=== PATIENT | female | born 1930 | race Caucasian/White ===

== ENCOUNTER 2018-02-22 20:47 | Inpatient (IN) | payer MEDICARE ==
[2018-02-22] MEDS ORDERED: NS 0.9% 500 ML* 500 ML IV ONE ×3 (21:24→23:13)
[2018-02-22 22:05] LABS: ABS Basophils 0.1 10^3/ul (0-0.2); ABS Eosinophils 0 10^3/ul (0-0.6); ABS Lymphocytes 1.7 10^3/ul (1.0-4.8); ABS Neutrophils 15.1 10^3/ul (1.5-7.7); ABS Nucleated RBC 0 10^3/ul; Eosinophil % 0.2 %; Hematocrit 41 % (35-47); Hemoglobin 13.5 g/dl (12.0-16.0); Lymphocyte % 9.6 %; Mean Corpuscular HGB Conc 33 g/dl (31-36); Mean Corpuscular Hemoglobin 30 pg (27-31); Mean Corpuscular Volume 93 fL (80-97); Mean Platelet Volume 8.5 fL (7.4-10.4); Nucleated Red Blood Cells % 0; Platelet Count 345 10^3/ul (150-450); Red Blood Count 4.44 10^6/ul (4.00-5.40); Red Cell Distribution Width 14 % (10.5-15)
[2018-02-22 22:10] LABS: INR 0.98 (0.77-1.02)
[2018-02-22 22:24] LABS: ALT 3 U/L (7-52); AST 15 U/L (13-39); Albumin/Globulin Ratio 1.2 (1-3); Alkaline Phosphatase 79 U/L (34-104); Anion Gap 9 mmol/L (2-11); BUN/Creatinine Ratio 36.2 (8-20); Blood Urea Nitrogen 38 mg/dL (6-24); C Reactive Protein 176.49 mg/L (<8.01); CO2 Carbon Dioxide 26 mmol/L (22-32); Calcium 9.9 mg/dL (8.6-10.3); Chloride 102 mmol/L (101-111); EGFR Non-African American 49.7 (>60); Globulin 3.3 g/dL (2-4); Glucose 153 mg/dL (70-100); Sodium 137 mmol/L (135-145); Total Protein 7.3 g/dL (6.4-8.9)
[2018-02-22] MEDS ORDERED: Iodixanol* (CONTRAST) 320 MG/ML 100 ML SDV IV ONE (22:27)
[2018-02-22 22:46] LABS: Urine Appearance Clear; Urine Bilirubin Negative (Negative); Urine Blood Negative (Negative); Urine Color Yellow; Urine Glucose Negative (Negative); Urine Ketones Negative (Negative); Urine Nitrite Negative (Negative); Urine Protein Negative (Negative); Urine Specific Gravity 1.014 (1.010-1.030); Urine Urobilinogen Negative (Negative)
--- NOTE | 2018-02-23 00:45 | ED ---
Abdominal Pain/Female - HPI Summary HPI Summary: Patient from [facility] with DNR and DNI complains of bilateral lower abdominal pain, blood in stool, rectal pain with bowel movement starting today. Denies fever, cough, sore throat, CP, SOB, N/V/D, change in urine. Medical history is HTN, hypothyroid, Parkinson's, HDL. Patient does not remember abdominal surgical history. Patient for the most part alert and oriented, but does not always answer history of present illness questions clearly. - History of Current Complaint Chief Complaint: EDGIBleed Stated Complaint: BLOOD IN STOOL Time Seen by Provider: 02/22/18 21:05 Hx Obtained From: Patient Onset/Duration: Gradual Onset, Lasting Hours Severity Initially: Moderate Severity Currently: Moderate Pain Intensity: 7 Pain Scale Used: 0-10 Numeric Location: Discrete At: RLQ, Discrete At: LLQ, Suprapubic Radiates: No Character: Sharp, Burning Aggravating Factor(s): Nothing Alleviating Factor(s): Nothing Associated Signs and Symptoms: Positive: Negative Allergies/Adverse Reactions: Allergies Allergy/AdvReac Type Severity Reaction Status Date / Time amantadine Allergy Unknown Verified 02/22/18 22:44 Reaction Details amoxicillin Allergy Unknown Verified 02/22/18 22:44 Reaction Details bee venom protein (honey bee) Allergy Anaphylatic Verified 02/22/18 20:59 Shock epinephrine [From EpiPen] Allergy Unknown Verified 02/22/18 22:44 Reaction Details hydrocodone Allergy Unknown Verified 02/22/18 20:59 Reaction Details meperidine [From Demerol] Allergy Unknown Verified 02/22/18 20:59 Reaction Details morphine Allergy Unknown Verified 02/22/18 20:59 Reaction Details procaine Allergy Unknown Verified 02/22/18 20:59 Reaction Details propoxyphene [From Darvon] Allergy Unknown Verified 02/22/18 20:59 Reaction Details PMH/Surg Hx/FS Hx/Imm Hx Endocrine/Hematology History: Reports: Hx Thyroid Disease - hypo Denies: Hx Diabetes Cardiovascular History: Reports: Hx Hypercholesterolemia, Hx Hypertension Respiratory History: Reports: Hx Chronic Bronchitis - was taking Azithromycin on admission Denies: Hx Asthma, Hx Chronic Obstructive Pulmonary Disease (COPD) GI History: Reports: Hx Gastroesophageal Reflux Disease, Hx Ulcer - gerd Musculoskeletal History: Reports: Hx Arthritis, Hx Osteoporosis Denies: Hx Rheumatoid Arthritis Sensory History: Reports: Hx Cataracts, Hx Contacts or Glasses, Hx Hearing Aid - not with patient, Hx Hearing Problem Opthamlomology History: Reports: Hx Cataracts, Hx Contacts or Glasses Neurological History: Reports: Other Neuro Impairments/Disorders - Parkinson's Psychiatric History: Reports: Hx Depression - Surgical History Surgery Procedure, Year, and Place: 1931 MASTOIDECTOMY RIGHT EAR. 1968 HYSTERECTOMY. 1971 FRACTURED RIGHT ANKLE. 1988 STAPEDECTOMY LEFT EAR. 1993 FRACTURED LEFT ANKLE. 1998 LAMINECTOMY L4 & L5. 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 2007 FRACTURE LEFT HUMEROUS. 2007 EYE LENS TRANSPLANT RIGHT Hx Anesthesia Reactions: No Infectious Disease History: No Infectious Disease History: Reports: Hx Tuberculosis - history Denies: Hx Clostridium Difficile, Hx Hepatitis, Hx Human Immunodeficiency Virus (HIV), Hx of Known/Suspected MRSA, Hx Shingles, Hx Known/Suspected VRE, Hx Known/Suspected VRSA, History Other Infectious Disease, Traveled Outside the [place] in Last 30 Days - Family History Known Family History: Positive: Cardiac Disease - Social History Alcohol Use: None Substance Use Type: Reports: None Smoking Status (MU): Never Smoked Tobacco Review of Systems Constitutional: Negative Eyes: Negative ENT: Negative Cardiovascular: Negative Respiratory: Negative Positive: Abdominal Pain Genitourinary: Negative Musculoskeletal: Negative Skin: Negative Neurological: Negative Psychological: Normal All Other Systems Reviewed And Are Negative: Yes Physical Exam - Summary Physical Exam Summary: Patient diffusely tender to palpation of the abdomen. Hemoccult positive. Minimal tone to her rectum. Rectum otherwise unremarkable. Physical exam otherwise unremarkable. Triage Information Reviewed: Yes Vital Signs On Initial Exam: Initial Vitals Temp Pulse Resp BP Pulse Ox 97.7 F 88 18 145/87 94 02/22/18 20:54 02/22/18 20:54 02/22/18 20:54 02/22/18 20:54 02/22/18 20:54 Vital Signs Reviewed: Yes Appearance: Positive: Well-Appearing Skin: Positive: Warm Head/Face: Positive: Normal Head/Face Inspection Eyes: Positive: Normal ENT: Positive: Normal ENT inspection Neck: Positive: Supple Respiratory/Lung Sounds: Positive: Clear to Auscultation Cardiovascular: Positive: Normal Abdomen Description: Positive: Other: Musculoskeletal: Positive: Normal Neurological: Positive: Normal Psychiatric: Positive: Normal AVPU Assessment: Alert - [place] Coma Scale Best Eye Response: 4 - Spontaneous Best Motor Response: 6 - Obeys Commands Best Verbal Response: 5 - Oriented Coma Scale Total: 15 Diagnostics - Vital Signs Vital Signs Temp Pulse Resp BP Pulse Ox 02/23/18 00:31 96 21 162/97 95 02/23/18 00:01 88 26 168/104 100 02/23/18 00:00 88 20 100 02/22/18 23:31 84 23 146/74 100 02/22/18 23:23 23 02/22/18 22:35 79 25 159/91 02/22/18 22:06 78 148/88 96 02/22/18 22:00 80 93 02/22/18 21:35 83 134/77 95 02/22/18 21:05 86 135/83 95 02/22/18 21:04 89 91 02/22/18 20:54 97.7 F 88 18 145/87 94 - Laboratory Lab Results: Lab Results 02/22/18 02/22/18 02/22/18 Range/Units 21:59 21:59 21:59 WBC 18.0 H (3.5-10.8) 10^3/ul RBC 4.44 (4.00-5.40) 10^6/ul Hgb 13.5 (12.0-16.0) g/dl Hct 41 (35-47) % MCV 93 (80-97) fL MCH 30 (27-31) pg MCHC 33 (31-36) g/dl RDW 14 (10.5-15) % Plt Count 345 (150-450) 10^3/ul MPV 8.5 (7.4-10.4) fL Neut % (Auto) 83.8 % Lymph % (Auto) 9.6 % [place] % (Auto) 5.7 % Eos % (Auto) 0.2 % Baso % (Auto) 0.7 % Absolute Neuts (auto) 15.1 H (1.5-7.7) 10^3/ul Absolute Lymphs (auto) 1.7 (1.0-4.8) 10^3/ul Absolute Monos (auto) 1.0 H (0-0.8) 10^3/ul Absolute Eos (auto) 0 (0-0.6) 10^3/ul Absolute Basos (auto) 0.1 (0-0.2) 10^3/ul Absolute Nucleated RBC 0 10^3/ul Nucleated RBC % 0 INR (Anticoag Therapy) 0.98 (0.77-1.02) Sodium 137 (135-145) mmol/L Potassium 4.0 (3.5-5.0) mmol/L Chloride 102 (101-111) mmol/L Carbon Dioxide 26 (22-32) mmol/L Anion Gap 9 (2-11) mmol/L BUN 38 H (6-24) mg/dL Creatinine 1.05 H (0.51-0.95) mg/dL Est GFR ( Amer) 60.1 (>60) Est GFR (Non-Af Amer) 49.7 (>60) BUN/Creatinine Ratio 36.2 H (8-20) Glucose 153 H (70-100) mg/dL Lactic Acid (0.5-2.0) mmol/L Calcium 9.9 (8.6-10.3) mg/dL Magnesium (1.9-2.7) mg/dL Total Bilirubin 1.00 (0.2-1.0) mg/dL AST 15 (13-39) U/L ALT 3 L (7-52) U/L Alkaline Phosphatase 79 (34-104) U/L Troponin I (<0.04) ng/mL C-Reactive Protein 176.49 H (<8.01) mg/L Total Protein 7.3 (6.4-8.9) g/dL Albumin 4.0 (3.2-5.2) g/dL Globulin 3.3 (2-4) g/dL Albumin/Globulin Ratio 1.2 (1-3) Lipase < 10 L (11.0-82.0) U/L Urine Color Urine Appearance Urine pH (5-9) Ur Specific [place] (1.010-1.030) Urine Protein (Negative) Urine Ketones (Negative) Urine Blood (Negative) Urine Nitrate (Negative) Urine Bilirubin (Negative) Urine Urobilinogen (Negative) Ur Leukocyte Esterase (Negative) Urine Glucose (Negative) 02/22/18 02/22/18 02/22/18 Range/Units 22:39 23:31 23:31 WBC (3.5-10.8) 10^3/ul RBC (4.00-5.40) 10^6/ul Hgb (12.0-16.0) g/dl Hct (35-47) % MCV (80-97) fL MCH (27-31) pg MCHC (31-36) g/dl RDW (10.5-15) % Plt Count (150-450) 10^3/ul MPV (7.4-10.4) fL Neut % (Auto) % Lymph % (Auto) % [place] % (Auto) % Eos % (Auto) % Baso % (Auto) % Absolute Neuts (auto) (1.5-7.7) 10^3/ul Absolute Lymphs (auto) (1.0-4.8) 10^3/ul Absolute Monos (auto) (0-0.8) 10^3/ul Absolute Eos (auto) (0-0.6) 10^3/ul Absolute Basos (auto) (0-0.2) 10^3/ul Absolute Nucleated RBC 10^3/ul Nucleated RBC % INR (Anticoag Therapy) (0.77-1.02) Sodium (135-145) mmol/L Potassium (3.5-5.0) mmol/L Chloride (101-111) mmol/L Carbon Dioxide (22-32) mmol/L Anion Gap (2-11) mmol/L BUN (6-24) mg/dL Creatinine (0.51-0.95) mg/dL Est GFR ( Amer) (>60) Est GFR (Non-Af Amer) (>60) BUN/Creatinine Ratio (8-20) Glucose (70-100) mg/dL Lactic Acid 1.6 (0.5-2.0) mmol/L Calcium (8.6-10.3) mg/dL Magnesium 2.0 (1.9-2.7) mg/dL Total Bilirubin (0.2-1.0) mg/dL AST (13-39) U/L ALT (7-52) U/L Alkaline Phosphatase (34-104) U/L Troponin I 0.00 (<0.04) ng/mL C-Reactive Protein (<8.01) mg/L Total Protein (6.4-8.9) g/dL Albumin (3.2-5.2) g/dL Globulin (2-4) g/dL Albumin/Globulin Ratio (1-3) Lipase (11.0-82.0) U/L Urine Color Yellow Urine Appearance Clear Urine pH 6.0 (5-9) Ur Specific [place] 1.014 (1.010-1.030) Urine Protein Negative (Negative) Urine Ketones Negative (Negative) Urine Blood Negative (Negative) Urine Nitrate Negative (Negative) Urine Bilirubin Negative (Negative) Urine Urobilinogen Negative (Negative) Ur Leukocyte Esterase Negative (Negative) Urine Glucose Negative (Negative) Result Diagrams: 02/22/18 21:59 02/22/18 21:59 Lab Statement: Any lab studies that have been ordered have been reviewed, and results considered in the medical decision making process. - CT ab/pel w CT Interpretation Completed By: Radiologist Summary of CT Findings: Colitis Abdominal Pain Fem Course/Dx - Course Course Of Treatment: Patient from [facility] with DNR and DNI complains of bilateral lower abdominal pain, blood in stool, rectal pain with bowel movement starting today. Denies fever, cough, sore throat, CP, SOB, N/V/D, change in urine. Medical history is HTN, hypothyroid, Parkinson's, HDL. Patient does not remember abdominal surgical history. Patient for the most part alert and oriented, but does not always answer history of present illness questions clearly. Physical exam:Patient diffusely tender to palpation of the abdomen. Hemoccult positive. Minimal tone to her rectum. Rectum otherwise unremarkable. Physical exam otherwise unremarkable. Vital signs within normal limits and stable. WBC 18. CRP 175. BUN 38. Creatinine 1.5.. BUN/ creatinine ratio 36. Labs otherwise unremarkable. EKG sinus rhythm with prolonged QT interval. Magnesium level normal. Chest x-ray unremarkable. CT abdomen and pelvis positive for colitis. Patient started on levaquin IV. Allergie to penicillin. Admitted to hospitalist. - Diagnoses Provider Diagnoses: Rectal bleeding, Colitis Discharge - Sign-Out/Discharge Documenting (check all that apply): Patient Departure - Discharge Plan Condition: Stable Disposition: ADMITTED TO [facility] Referrals: Gelacio Weinstein MD [Primary Care Provider] - - Billing Disposition and Condition Condition: STABLE Disposition: Admitted to [facility]
[2018-02-23] MEDS ORDERED: Levofloxacin 750 MG IVPREMIX(* 750 MG/150 ML BAG IVPB ONE (01:15)
[2018-02-23] MEDS ORDERED: Benzonatate CAP* 100 MG PO PRN (01:15)
[2018-02-23] MEDS ORDERED: Levofloxacin 750 MG IVPREMIX(* 750 MG/150 ML BAG ONE (02:04)
[2018-02-23] MEDS ORDERED: Ziprasidone IM INJ* 20 MG/ML VIAL IM ONE ×2 (03:22→20:00)
[2018-02-23] MEDS: Carbidopa/Levodop CR 50/200(*) TAB.CR PO SCH ×2 (04:25→23:06)
[2018-02-23 06:52] LABS: ABS Basophils 0 10^3/ul (0-0.2); ABS Eosinophils 0 10^3/ul (0-0.6); ABS Lymphocytes 1.7 10^3/ul (1.0-4.8); ABS Monocytes 0.9 10^3/ul (0-0.8); ABS Nucleated RBC 0 10^3/ul; Eosinophil % 0.3 %; Hematocrit 44 % (35-47); Hemoglobin 13.8 g/dl (12.0-16.0); Mean Corpuscular HGB Conc 32 g/dl (31-36); Mean Corpuscular Hemoglobin 30 pg (27-31); Mean Corpuscular Volume 95 fL (80-97); Mean Platelet Volume 8.5 fL (7.4-10.4); Nucleated Red Blood Cells % 0; Platelet Count 295 10^3/ul (150-450); Red Blood Count 4.61 10^6/ul (4.00-5.40); Red Cell Distribution Width 15 % (10.5-15); White Blood Count 15.7 10^3/ul (3.5-10.8)
[2018-02-23 07:34] LABS: Calcium 9.6 mg/dL (8.6-10.3); Potassium 4.6 mmol/L (3.5-5.0)
[2018-02-23 07:39] LABS: BUN/Creatinine Ratio 32.7 (8-20)
[2018-02-23 07:46] LABS: TSH (Thyroid Stimulating Horm) 3.32 mcIU/mL (0.34-5.60)
[2018-02-23 08:09] LABS: CRP High Sensitivity 178.78 mg/L (<2.00)
--- NOTE | 2018-02-23 08:32 | ADMNOTE ---
Subjective Date of Service: 02/23/18 Interval History: code status dnr ( molst form from snf is dni/dnr/do not admit to hospital unless pain is not controlled ) source staff pt is very confused with demenita hx this is admission h/p hpi this is a 87 yr old wf with mod dementia at least from snf ( [facility] ) was sent in to er when she was found to have blood in the stool. as per er, pt is confused but follows commands ---> had some abd pain when er midlevel pressed upon her abd---> ct of abd/pelvis showed sigmoid colitis. pt was very agitated on the medical floor qtc is 460 ---> one dose of im geodan was given ---> pt was seen afterwards im geodan and was sedated ---> no abd pain was able to be elicitied but she would sleep push away hands and finger stick probe. pt got flaygl and levaquin from er due to pcn. as per er signout, she has loose stool upon rectal exam phx possible dementia htn parkinson hypothyroid hd gerd oa depression hx of asymptomatic cholelithiasis with transient elevation of ast in 2016 pshx unable to get from pt social hx unable due to her dementia fhx unable Review of Systems - Measurements Intake and Output: Intake and Output Last 24 Hours 02/21/18 02/22/18 02/23/18 02/24/18 06:59 06:59 06:59 06:59 Intake Total 500 Balance 500 Weight 136 lb 14.4 oz Intake: IV Fluids 500 Other: Estimated Void Small # Bowel Movements 1 Estimated Stool Amount Large # Voids 1 - Review of Systems General Comments: unable due to her dementia Objective Active Medications: Ascorbic Acid (Vitamin C Tab*) 500 mg PO DAILY ANANDA Aspirin (Aspirin Ec Tab*) 81 mg PO DAILY ANANDA Carbidopa/Levodopa (Sinemet 25/100 Tab(*)) 2 tab PO 0500,0830,1100 ANANDA Carbidopa/Levodopa (Sinemet 25/100 Tab(*)) 2 tab PO 1730,1930 ANANDA Carbidopa/Levodopa (Sinemet Cr 50/200(*)) 1 tab.cr PO 2200,0200 ANANDA Last Admin: 02/23/18 04:25 Dose: Not Given Cetirizine HCl (Zyrtec*) 10 mg PO DAILY ANANDA Cyclosporine (Restasis 0.05% Ophth) 1 drop BOTH EYES DAILY ANANDA; Protocol Diltiazem HCl (Cardizem Cd Cap*) 180 mg PO DAILY ANANDA Docusate Sodium (Colace Cap*) 100 mg PO BID ANANDA Sodium Chloride (Ns 0.9% 1000 Ml*) 1,000 mls @ 125 mls/hr IV PER RATE ANANDA Levothyroxine Sodium (Synthroid Tab*) 25 mcg PO 0600 ANANDA Losartan Potassium (Cozaar Tab*) 50 mg PO DAILY ANANDA (Multiple Vitamins W / Calcium [Viactiv Multi-Vitamin] 1 Chw ) 1 chw PO DAILY ANANDA Omeprazole (Prilosec Cap*) 20 mg PO DAILY ANANDA Oxybutynin Chloride (Ditropan Tab*) 5 mg PO DAILY ANANDA Polyethylene Glycol/Electrolytes (Miralax*) 17 gm PO DAILY ANANDA Sertraline HCl (Zoloft*) 25 mg PO DAILY ANANDA Vital Signs - 8 hr 02/23/18 02/23/18 02/23/18 00:31 01:00 01:01 Temperature Pulse Rate 96 88 97 Respiratory 21 22 26 Rate Blood Pressure 162/97 154/91 (mmHg) O2 Sat by Pulse 95 97 87 Oximetry 02/23/18 02/23/18 02/23/18 01:31 01:50 02:00 Temperature Pulse Rate 82 Respiratory 21 23 21 Rate Blood Pressure 132/82 150/94 (mmHg) O2 Sat by Pulse 97 Oximetry 02/23/18 02/23/18 02/23/18 02:01 02:04 02:40 Temperature 97.7 F 98.2 F Pulse Rate 112 92 Respiratory 20 16 14 Rate Blood Pressure 126/78 144/67 150/94 (mmHg) O2 Sat by Pulse 99 95 Oximetry 02/23/18 05:57 Temperature 98.6 F Pulse Rate 72 Respiratory 20 Rate Blood Pressure (mmHg) O2 Sat by Pulse Oximetry Oxygen Devices in Use Now: None Appearance: not in acute disterss ----> sleeping after im geodan Ears/Nose/Mouth/Throat: - - oral mucosa dry Neck: NL Appearance and Movements; NL JVP, Trachea Midline, No Thyroid Enlargement, Masses Respiratory: Symmetrical Chest Expansion and Respiratory Effort, Clear to Auscultation, - - decreased b/s at base Cardiovascular: NL Sounds; No Murmurs; No JVD, RRR Abdominal: - - + bs soft distended abd overall is benign but she is sedated with im geodan 10 mg Extremities: - - trace pedal edema sedated Neurological: - - sedated with im geodan ( was very agitated ) Result Diagrams: 02/23/18 06:32 02/23/18 06:32 Additional Lab and Data: Lab Results 02/22/18 02/22/18 02/22/18 Range/Units 21:59 21:59 21:59 WBC 18.0 H (3.5-10.8) 10^3/ul RBC 4.44 (4.00-5.40) 10^6/ul Hgb 13.5 (12.0-16.0) g/dl Hct 41 (35-47) % MCV 93 (80-97) fL MCH 30 (27-31) pg MCHC 33 (31-36) g/dl RDW 14 (10.5-15) % Plt Count 345 (150-450) 10^3/ul MPV 8.5 (7.4-10.4) fL Neut % (Auto) 83.8 % Lymph % (Auto) 9.6 % [place] % (Auto) 5.7 % Eos % (Auto) 0.2 % Baso % (Auto) 0.7 % Absolute Neuts (auto) 15.1 H (1.5-7.7) 10^3/ul Absolute Lymphs (auto) 1.7 (1.0-4.8) 10^3/ul Absolute Monos (auto) 1.0 H (0-0.8) 10^3/ul Absolute Eos (auto) 0 (0-0.6) 10^3/ul Absolute Basos (auto) 0.1 (0-0.2) 10^3/ul Absolute Nucleated RBC 0 10^3/ul Nucleated RBC % 0 INR (Anticoag Therapy) 0.98 (0.77-1.02) Sodium 137 (135-145) mmol/L Potassium 4.0 (3.5-5.0) mmol/L Chloride 102 (101-111) mmol/L Carbon Dioxide 26 (22-32) mmol/L Anion Gap 9 (2-11) mmol/L BUN 38 H (6-24) mg/dL Creatinine 1.05 H (0.51-0.95) mg/dL Est GFR ( Amer) 60.1 (>60) Est GFR (Non-Af Amer) 49.7 (>60) BUN/Creatinine Ratio 36.2 H (8-20) Glucose 153 H (70-100) mg/dL Lactic Acid (0.5-2.0) mmol/L Calcium 9.9 (8.6-10.3) mg/dL Magnesium (1.9-2.7) mg/dL Total Bilirubin 1.00 (0.2-1.0) mg/dL AST 15 (13-39) U/L ALT 3 L (7-52) U/L Alkaline Phosphatase 79 (34-104) U/L Troponin I (<0.04) ng/mL C-Reactive Protein 176.49 H (<8.01) mg/L Total Protein 7.3 (6.4-8.9) g/dL Albumin 4.0 (3.2-5.2) g/dL Globulin 3.3 (2-4) g/dL Albumin/Globulin Ratio 1.2 (1-3) Lipase < 10 L (11.0-82.0) U/L Urine Color Urine Appearance Urine pH (5-9) Ur Specific [place] (1.010-1.030) Urine Protein (Negative) Urine Ketones (Negative) Urine Blood (Negative) Urine Nitrate (Negative) Urine Bilirubin (Negative) Urine Urobilinogen (Negative) Ur Leukocyte Esterase (Negative) Urine Glucose (Negative) 02/22/18 02/22/18 02/22/18 Range/Units 22:39 23:31 23:31 WBC (3.5-10.8) 10^3/ul RBC (4.00-5.40) 10^6/ul Hgb (12.0-16.0) g/dl Hct (35-47) % MCV (80-97) fL MCH (27-31) pg MCHC (31-36) g/dl RDW (10.5-15) % Plt Count (150-450) 10^3/ul MPV (7.4-10.4) fL Neut % (Auto) % Lymph % (Auto) % [place] % (Auto) % Eos % (Auto) % Baso % (Auto) % Absolute Neuts (auto) (1.5-7.7) 10^3/ul Absolute Lymphs (auto) (1.0-4.8) 10^3/ul Absolute Monos (auto) (0-0.8) 10^3/ul Absolute Eos (auto) (0-0.6) 10^3/ul Absolute Basos (auto) (0-0.2) 10^3/ul Absolute Nucleated RBC 10^3/ul Nucleated RBC % INR (Anticoag Therapy) (0.77-1.02) Sodium (135-145) mmol/L Potassium (3.5-5.0) mmol/L Chloride (101-111) mmol/L Carbon Dioxide (22-32) mmol/L Anion Gap (2-11) mmol/L BUN (6-24) mg/dL Creatinine (0.51-0.95) mg/dL Est GFR ( Amer) (>60) Est GFR (Non-Af Amer) (>60) BUN/Creatinine Ratio (8-20) Glucose (70-100) mg/dL Lactic Acid 1.6 (0.5-2.0) mmol/L Calcium (8.6-10.3) mg/dL Magnesium 2.0 (1.9-2.7) mg/dL Total Bilirubin (0.2-1.0) mg/dL AST (13-39) U/L ALT (7-52) U/L Alkaline Phosphatase (34-104) U/L Troponin I 0.00 (<0.04) ng/mL C-Reactive Protein (<8.01) mg/L Total Protein (6.4-8.9) g/dL Albumin (3.2-5.2) g/dL Globulin (2-4) g/dL Albumin/Globulin Ratio (1-3) Lipase (11.0-82.0) U/L Urine Color Yellow Urine Appearance Clear Urine pH 6.0 (5-9) Ur Specific [place] 1.014 (1.010-1.030) Urine Protein Negative (Negative) Urine Ketones Negative (Negative) Urine Blood Negative (Negative) Urine Nitrate Negative (Negative) Urine Bilirubin Negative (Negative) Urine Urobilinogen Negative (Negative) Ur Leukocyte Esterase Negative (Negative) Urine Glucose Negative (Negative) Microbiology and Other Data: Microbiology 02/22/18 22:00 Stool Occult Blood (MELITON) - Final Stool EKG Data: ns no acute st t changes Assess/Plan/Problems-Billing Assessment: this is a 87 yr old with mod dementia from snf presented to er after she was found to have blood in stool. as per er, she was found to have abd pain and was found to have loose stool upon rectal ---> ct of abd/pelvis showed + sigmoid colitis ---> intial wbc is 18 got levaquin and flagyl from er due to pcn - Patient Problems (1) Parkinson disease Current Visit: No Status: Chronic Code(s): G20 - PARKINSON'S DISEASE SNOMED Code(s): 97097930 Comment: continue Sinemet. pt is on significant amounts of sinemet, but daughter requested to cont at home dosage which is 10 tabs total of 25/100 and 2 tabs total of Sinemet CR (2) Sigmoid diverticulitis Current Visit: Yes Status: Acute Code(s): K57.32 - DVTRCLI OF LG INT W/O PERFORATION OR ABSCESS W/O BLEEDING SNOMED Code(s): 595179416 Comment: clear liquid as tolerated iv levaquin and flaygl moniter cbc and crp trend (3) HTN (hypertension) Current Visit: No Status: Chronic Code(s): I10 - ESSENTIAL (PRIMARY) HYPERTENSION SNOMED Code(s): 24252760 Comment: controlled, cont outpatient meds (4) Hypothyroidism Current Visit: No Status: Chronic Code(s): E03.9 - HYPOTHYROIDISM, UNSPECIFIED SNOMED Code(s): 78564356 Comment: cont Synthroid (5) Dementia Current Visit: Yes Status: Acute Code(s): F03.90 - UNSPECIFIED DEMENTIA WITHOUT BEHAVIORAL DISTURBANCE SNOMED Code(s): 40307327 Comment: very possible she became very agitated when arrived to floor got im geodan 10 mg im times one was sleeping when seen by this news writer (6) SIRS (systemic inflammatory response syndrome) Current Visit: Yes Status: Acute Code(s): R65.10 - SIRS OF NON-INFECTIOUS ORIGIN W/O ACUTE ORGAN DYSFUNCTION SNOMED Code(s): 009023710 Comment: moniter cbc trend continue abx (7) DNR (do not resuscitate) Current Visit: Yes Status: Acute (8) DVT prophylaxis Current Visit: Yes Status: Acute Code(s): BDX3804 - SNOMED Code(s): 261887941 Comment: as per protocol (9) Blood in stool Current Visit: Yes Status: Acute Code(s): K92.1 - MELENA SNOMED Code(s): 22277107 Comment: not sure it is related to colitis but her hg has been stable sonia (10) Dehydration Current Visit: Yes Status: Acute Code(s): E86.0 - DEHYDRATION SNOMED Code( s): 00802648 Comment: ivf moniter input and outpt and lytes
[2018-02-23] MEDS: NS 0.9% 1000 ML* 1,000 ML IV SCH ×2 (08:54→19:37)
[2018-02-23] MEDS ORDERED: MULTIPLE VITAMINS PO SCH (09:00)
[2018-02-23] MEDS ORDERED: CALCIUM PO SCH (09:00)
[2018-02-23] MEDS: Levothyroxine TAB* 25 MCG TAB PO SCH (10:33)
[2018-02-23] MEDS: Carbidopa/Levodop 25/100 MG TAB(*) PO SCH ×5 (10:33→19:35)
[2018-02-23] MEDS: metroNIDAZOLE IV 500 MG/100ML* 500 MG/100 ML BAG IVPB SCH ×2 (10:54→18:26)
[2018-02-23] MEDS: Cetirizine* 10 MG TAB PO SCH (12:10)
[2018-02-23] MEDS: Docusate CAP* 100 MG PO SCH ×2 (12:11→20:33)
[2018-02-23] MEDS: Omeprazole CAP (NF) 20 MG CAP.DR PO SCH (12:11)
[2018-02-23] MEDS: Sertraline* 25 MG TAB PO SCH (12:11)
[2018-02-23] MEDS: Diltiazem CD CAP* 180 MG PO SCH (12:11)
[2018-02-23] MEDS: Losartan TAB* 25 MG PO SCH (12:11)
[2018-02-23] MEDS: Oxybutynin TAB* 5 MG PO SCH (12:12)
[2018-02-23] MEDS: Ascorbic Acid TAB* 500 MG PO SCH (12:12)
[2018-02-23] MEDS: Aspirin EC TAB* 81 MG TAB.EC PO SCH (12:12)
[2018-02-23] MEDS: CYCLOSPORINE 0.05% BOTH EYES SCH (12:14)
[2018-02-23] MEDS ORDERED: Acetaminophen TAB* 325 MG PO PRN (14:02)
[2018-02-23] MEDS ORDERED: NS 0.9% 500 ML* 500 ML IV ONE (14:55)
[2018-02-23] MEDS: Heparin VIAL(*) 5000 UNITS/ML VIAL (FIVE THOUSAND) SUBCUT SCH ×2 (15:07→23:07)
[2018-02-23] MEDS: Polyethylene Glycol 3350* 17 GM PACKET PO SCH (20:09)
[2018-02-24] MEDS: metroNIDAZOLE IV 500 MG/100ML* 500 MG/100 ML BAG IVPB SCH ×3 (00:56→16:38)
[2018-02-24] MEDS: Carbidopa/Levodop CR 50/200(*) TAB.CR PO SCH ×2 (00:58→21:52)
[2018-02-24] MEDS: NS 0.9% 1000 ML* 1,000 ML IV SCH ×3 (03:50→21:41)
[2018-02-24] MEDS: Carbidopa/Levodop 25/100 MG TAB(*) PO SCH ×6 (04:07→20:01)
[2018-02-24] MEDS: Heparin VIAL(*) 5000 UNITS/ML VIAL (FIVE THOUSAND) SUBCUT SCH ×3 (05:51→21:52)
[2018-02-24] MEDS: Levothyroxine TAB* 25 MCG TAB PO SCH (05:55)
--- NOTE | 2018-02-24 08:02 | PN ---
Hospitalist Progress Note Date of Service: 02/24/18 got called reg pt sinement problem she has been very agitated and unable to tolerate any po meds or diet spoke with pharmacy reg convert her sinement to other forms of im or otc vs patch but given her overall mental status problem it may be for days prior to she is able to back on diet ---> her parkinson meds could be delayed for days which may not be her best interest and may make her overall mental status worse ---> pharmacy is greatly appreciated and placed for request for possible im replacment for sinement oral. this process may take one day to get this im med
[2018-02-24] MEDS: CYCLOSPORINE 0.05% BOTH EYES SCH (08:43)
[2018-02-24] MEDS: Aspirin EC TAB* 81 MG TAB.EC PO SCH (08:43)
[2018-02-24] MEDS: Docusate CAP* 100 MG PO SCH ×2 (08:43→21:38)
[2018-02-24] MEDS: Diltiazem CD CAP* 180 MG PO SCH (08:43)
[2018-02-24] MEDS: Losartan TAB* 25 MG PO SCH (08:43)
[2018-02-24] MEDS: Ascorbic Acid TAB* 500 MG PO SCH (08:43)
[2018-02-24] MEDS: Cetirizine* 10 MG TAB PO SCH (08:43)
[2018-02-24] MEDS: Oxybutynin TAB* 5 MG PO SCH (08:44)
[2018-02-24] MEDS: Polyethylene Glycol 3350* 17 GM PACKET PO SCH (08:44)
[2018-02-24] MEDS: Omeprazole CAP (NF) 20 MG CAP.DR PO SCH (08:44)
[2018-02-24] MEDS: Sertraline* 25 MG TAB PO SCH (08:44)
[2018-02-24] MEDS: Vitamin THERAPEUTIC TAB PO SCH (08:44)
--- NOTE | 2018-02-24 09:56 | PN ---
Subjective Date of Service: 02/24/18 Interval History: Pt with Parkinson's dementia. Pt initially refused examination, but was agreeable when daughter was present. Nurses report she was combative overnight and continues to refuse PO Sinemet. Objective Active Medications: Acetaminophen (Tylenol Tab*) 650 mg PO Q6H PRN Ascorbic Acid (Vitamin C Tab*) 500 mg PO DAILY ANANDA Aspirin (Aspirin Ec Tab*) 81 mg PO DAILY ANANDA Carbidopa/Levodopa (Sinemet 25/100 Tab(*)) 2 tab PO 0500,0830,1100 ANANDA Carbidopa/Levodopa (Sinemet 25/100 Tab(*)) 2 tab PO 1730,1930 ANANDA Carbidopa/Levodopa (Sinemet Cr 50/200(*)) 1 tab.cr PO 2200,0200 ANANDA Cetirizine HCl (Zyrtec*) 10 mg PO DAILY ANANDA Cyclosporine (Restasis 0.05% Ophth) 1 drop BOTH EYES DAILY ANANDA Diltiazem HCl (Cardizem Cd Cap*) 180 mg PO DAILY ANANDA Docusate Sodium (Colace Cap*) 100 mg PO BID ANANDA Heparin Sodium (Porcine) (Heparin Vial(*)) 5,000 units SUBCUT Q8HR ANANDA Sodium Chloride (Ns 0.9% 1000 Ml*) 1,000 mls @ 125 mls/hr IV PER RATE ANANDA Levofloxacin/Dextrose (Levaquin 750 Mg Ivpremix(*)) 750 mg in 150 mls @ 100 mls /hr IVPB Q48H ANANDA Metronidazole/Sodium Chloride (Flagyl 500 Mg Ivpb*) 500 mg in 100 mls @ 100 mls /hr IVPB Q8H ANANDA Levothyroxine Sodium (Synthroid Tab*) 25 mcg PO 0600 ANANDA Losartan Potassium (Cozaar Tab*) 50 mg PO DAILY ANANDA Multivitamins (Theragran Tab*) 1 tab PO DAILY ANANDA Omeprazole (Prilosec Cap*) 20 mg PO DAILY ANANDA Oxybutynin Chloride (Ditropan Tab*) 5 mg PO DAILY ANANDA Polyethylene Glycol/Electrolytes (Miralax*) 17 gm PO DAILY ANANDA Sertraline HCl (Zoloft*) 25 mg PO DAILY ANANDA Vital Signs: Temp Pulse Resp BP Pulse Ox 97.5 F 71 18 125/60 96 02/23/18 23:27 02/23/18 23:27 02/23/18 23:27 02/23/18 23:27 02/23/18 15:20 Oxygen Devices in Use Now: None Appearance: Pt is laying in bed with HOB elevated 45-degrees. Pt in no acute distress. Eyes: No Scleral Icterus Ears/Nose/Mouth/Throat: NL Teeth, Lips, Gums Neck: NL Appearance and Movements; NL JVP, Trachea Midline Respiratory: Symmetrical Chest Expansion and Respiratory Effort, Clear to Auscultation Cardiovascular: NL Sounds; No Murmurs; No JVD, No Edema Abdominal: NL Sounds; No Tenderness; No Distention Extremities: No Clubbing, Cyanosis Result Diagrams: 02/24/18 11:16 02/24/18 11:16 Additional Lab and Data: Lab Results 02/22/18 02/22/18 02/22/18 Range/Units 21:59 21:59 21:59 WBC 18.0 H (3.5-10.8) 10^3/ul RBC 4.44 (4.00-5.40) 10^6/ul Hgb 13.5 (12.0-16.0) g/dl Hct 41 (35-47) % MCV 93 (80-97) fL MCH 30 (27-31) pg MCHC 33 (31-36) g/dl RDW 14 (10.5-15) % Plt Count 345 (150-450) 10^3/ul MPV 8.5 (7.4-10.4) fL Neut % (Auto) 83.8 % Lymph % (Auto) 9.6 % [place] % (Auto) 5.7 % Eos % (Auto) 0.2 % Baso % (Auto) 0.7 % Absolute Neuts (auto) 15.1 H (1.5-7.7) 10^3/ul Absolute Lymphs (auto) 1.7 (1.0-4.8) 10^3/ul Absolute Monos (auto) 1.0 H (0-0.8) 10^3/ul Absolute Eos (auto) 0 (0-0.6) 10^3/ul Absolute Basos (auto) 0.1 (0-0.2) 10^3/ul Absolute Nucleated RBC 0 10^3/ul Nucleated RBC % 0 INR (Anticoag Therapy) 0.98 (0.77-1.02) Sodium 137 (135-145) mmol/L Potassium 4.0 (3.5-5.0) mmol/L Chloride 102 (101-111) mmol/L Carbon Dioxide 26 (22-32) mmol/L Anion Gap 9 (2-11) mmol/L BUN 38 H (6-24) mg/dL Creatinine 1.05 H (0.51-0.95) mg/dL Est GFR ( Amer) 60.1 (>60) Est GFR (Non-Af Amer) 49.7 (>60) BUN/Creatinine Ratio 36.2 H (8-20) Glucose 153 H (70-100) mg/dL Lactic Acid (0.5-2.0) mmol/L Calcium 9.9 (8.6-10.3) mg/dL Magnesium (1.9-2.7) mg/dL Total Bilirubin 1.00 (0.2-1.0) mg/dL AST 15 (13-39) U/L ALT 3 L (7-52) U/L Alkaline Phosphatase 79 (34-104) U/L Troponin I (<0.04) ng/mL C-Reactive Protein 176.49 H (<8.01) mg/L Total Protein 7.3 (6.4-8.9) g/dL Albumin 4.0 (3.2-5.2) g/dL Globulin 3.3 (2-4) g/dL Albumin/Globulin Ratio 1.2 (1-3) Lipase < 10 L (11.0-82.0) U/L Urine Color Urine Appearance Urine pH (5-9) Ur Specific [place] (1.010-1.030) Urine Protein (Negative) Urine Ketones (Negative) Urine Blood (Negative) Urine Nitrate (Negative) Urine Bilirubin (Negative) Urine Urobilinogen (Negative) Ur Leukocyte Esterase (Negative) Urine Glucose (Negative) 02/22/18 02/22/18 02/22/18 Range/Units 22:39 23:31 23:31 WBC (3.5-10.8) 10^3/ul RBC (4.00-5.40) 10^6/ul Hgb (12.0-16.0) g/dl Hct (35-47) % MCV (80-97) fL MCH (27-31) pg MCHC (31-36) g/dl RDW (10.5-15) % Plt Count (150-450) 10^3/ul MPV (7.4-10.4) fL Neut % (Auto) % Lymph % (Auto) % [place] % (Auto) % Eos % (Auto) % Baso % (Auto) % Absolute Neuts (auto) (1.5-7.7) 10^3/ul Absolute Lymphs (auto) (1.0-4.8) 10^3/ul Absolute Monos (auto) (0-0.8) 10^3/ul Absolute Eos (auto) (0-0.6) 10^3/ul Absolute Basos (auto) (0-0.2) 10^3/ul Absolute Nucleated RBC 10^3/ul Nucleated RBC % INR (Anticoag Therapy) (0.77-1.02) Sodium (135-145) mmol/L Potassium (3.5-5.0) mmol/L Chloride (101-111) mmol/L Carbon Dioxide (22-32) mmol/L Anion Gap (2-11) mmol/L BUN (6-24) mg/dL Creatinine (0.51-0.95) mg/dL Est GFR ( Amer) (>60) Est GFR (Non-Af Amer) (>60) BUN/Creatinine Ratio (8-20) Glucose (70-100) mg/dL Lactic Acid 1.6 (0.5-2.0) mmol/L Calcium (8.6-10.3) mg/dL Magnesium 2.0 (1.9-2.7) mg/dL Total Bilirubin (0.2-1.0) mg/dL AST (13-39) U/L ALT (7-52) U/L Alkaline Phosphatase (34-104) U/L Troponin I 0.00 (<0.04) ng/mL C-Reactive Protein (<8.01) mg/L Total Protein (6.4-8.9) g/dL Albumin (3.2-5.2) g/dL Globulin (2-4) g/dL Albumin/Globulin Ratio (1-3) Lipase (11.0-82.0) U/L Urine Color Yellow Urine Appearance Clear Urine pH 6.0 (5-9) Ur Specific [place] 1.014 (1.010-1.030) Urine Protein Negative (Negative) Urine Ketones Negative (Negative) Urine Blood Negative (Negative) Urine Nitrate Negative (Negative) Urine Bilirubin Negative (Negative) Urine Urobilinogen Negative (Negative) Ur Leukocyte Esterase Negative (Negative) Urine Glucose Negative (Negative) Microbiology and Other Data: Microbiology 02/22/18 22:00 Stool Occult Blood (MELITON) - Final Stool EKG Data: ns no acute st t changes Assess/Plan/Problems-Billing Assessment: this is a 87 yr old with mod dementia from snf presented to er after she was found to have blood in stool. as per er, she was found to have abd pain and was found to have loose stool upon rectal ---> ct of abd/pelvis showed + sigmoid colitis ---> intial wbc is 18 got levaquin and flagyl from er due to pcn - Patient Problems (1) Sigmoid diverticulitis Comment: -Pt without fevers -Continue clear liguids as tolerated -Continue Lavaquin, Flagyl -Continue CBC, CRP trend (2) Blood in stool Comment: -Hgb dipped overnight, but patient is asymptomatic. May be dilutional or due to colitis -Continue to trend (3) Parkinson disease Comment: -Pt refusiing Sinemet. Will try Sinemet later with daughter present. -Neupro 4mg transdermal patch ordered to start tomorrow a.m.; discontinue Sinemet at that time (4) Hypokalemia Comment: -Potassium Chloride 40 mEq ordered now -Repeat BMP tomorrow (5) Dehydration Comment: -Continue IVF -Monitor I/O, electrolytes (6) Dementia Comment: -Pt remains aggitated and uncooperative, although she is much less so with daughter present; she has not been combative recently -Continue to monitor (7) HTN (hypertension) Comment: -BP stable last 24h -Continue losartan, cardizem (8) Hypothyroidism Comment: -Continue Synthroid (9) DVT prophylaxis Comment: -Continue Heparin (10) DNR (do not resuscitate) Status and Disposition: Inpatient for IV antibiotics and continued treatment. Return to [place] when medically stable.
[2018-02-24 11:53] LABS: ABS Basophils 0 10^3/ul (0-0.2); ABS Eosinophils 0.3 10^3/ul (0-0.6); ABS Monocytes 0.5 10^3/ul (0-0.8); ABS Neutrophils 8.8 10^3/ul (1.5-7.7); ABS Nucleated RBC 0 10^3/ul; Eosinophil % 2.3 %; Hematocrit 34 % (35-47); Hemoglobin 11.1 g/dl (12.0-16.0); Lymphocyte % 17.3 %; Mean Corpuscular HGB Conc 32 g/dl (31-36); Mean Corpuscular Hemoglobin 30 pg (27-31); Mean Corpuscular Volume 93 fL (80-97); Mean Platelet Volume 8.6 fL (7.4-10.4); Nucleated Red Blood Cells % 0; Platelet Count 283 10^3/ul (150-450); Red Cell Distribution Width 15 % (10.5-15); White Blood Count 11.6 10^3/ul (3.5-10.8)
[2018-02-24 12:07] LABS: BUN/Creatinine Ratio 22.9 (8-20); EGFR Non-African American 65.2 (>60); Potassium 3.1 mmol/L (3.5-5.0)
[2018-02-24] MEDS ORDERED: Potassium Chlor TAB* 20 MEQ TAB.ER PO ONE (12:27)
[2018-02-24] MEDS ORDERED: Analgesic BALM* 114 GM TOPICAL PRN (13:15)
[2018-02-25] MEDS: metroNIDAZOLE IV 500 MG/100ML* 500 MG/100 ML BAG IVPB SCH ×3 (00:36→17:36)
[2018-02-25] MEDS: Carbidopa/Levodop CR 50/200(*) TAB.CR PO SCH ×2 (01:33→21:52)
[2018-02-25] MEDS: Cefepime* 2 GM in Dextrose 50mL Q12H (Duplex) IV SCH ×2 (01:47→14:10)
[2018-02-25] MEDS ORDERED: Levofloxacin 750 MG IVPREMIX(* 750 MG/150 ML BAG IVPB SCH (02:00)
[2018-02-25] MEDS: NS 0.9% 1000 ML* 1,000 ML IV SCH ×3 (05:49→23:05)
[2018-02-25 06:02] LABS: ABS Basophils 0.1 10^3/ul (0-0.2); ABS Eosinophils 0.3 10^3/ul (0-0.6); ABS Lymphocytes 1.8 10^3/ul (1.0-4.8); ABS Monocytes 0.5 10^3/ul (0-0.8); ABS Neutrophils 6.8 10^3/ul (1.5-7.7); ABS Nucleated RBC 0 10^3/ul; Eosinophil % 2.8 %; Hematocrit 33 % (35-47); Hemoglobin 10.9 g/dl (12.0-16.0); Lymphocyte % 19.6 %; Mean Corpuscular HGB Conc 33 g/dl (31-36); Mean Corpuscular Hemoglobin 31 pg (27-31); Mean Corpuscular Volume 93 fL (80-97); Mean Platelet Volume 8.8 fL (7.4-10.4); Nucleated Red Blood Cells % 0; Platelet Count 280 10^3/ul (150-450); Red Blood Count 3.53 10^6/ul (4.00-5.40); Red Cell Distribution Width 14 % (10.5-15); White Blood Count 9.4 10^3/ul (3.5-10.8)
[2018-02-25] MEDS: Levothyroxine TAB* 25 MCG TAB PO SCH (06:02)
[2018-02-25] MEDS: Carbidopa/Levodop 25/100 MG TAB(*) PO SCH ×5 (06:02→19:52)
[2018-02-25] MEDS: Heparin VIAL(*) 5000 UNITS/ML VIAL (FIVE THOUSAND) SUBCUT SCH ×3 (06:06→21:54)
[2018-02-25 06:24] LABS: BUN/Creatinine Ratio 17.5 (8-20); EGFR Non-African American 89.6 (>60); Potassium 3.2 mmol/L (3.5-5.0)
[2018-02-25] MEDS ORDERED: Potassium Chlor TAB* 20 MEQ TAB.ER PO ONE (07:35)
[2018-02-25] MEDS ORDERED: Magnesium Sulfate 1 GM IV* 1 GM/100 ML BAG IV ONE (07:36)
[2018-02-25] MEDS ORDERED: KCL 10 MEQ/50 ML IVPREMIX* 10 MEQ/50 ML BAG IV ONE (07:36)
[2018-02-25 07:57] LABS: Magnesium 1.5 mg/dL (1.9-2.7)
[2018-02-25] MEDS: Cetirizine* 10 MG TAB PO SCH (08:29)
[2018-02-25] MEDS: Sertraline* 25 MG TAB PO SCH (08:29)
[2018-02-25] MEDS: Aspirin EC TAB* 81 MG TAB.EC PO SCH (08:29)
[2018-02-25] MEDS: Diltiazem CD CAP* 180 MG PO SCH (08:29)
[2018-02-25] MEDS: Losartan TAB* 25 MG PO SCH (08:29)
[2018-02-25] MEDS: Oxybutynin TAB* 5 MG PO SCH (08:29)
[2018-02-25] MEDS: Vitamin THERAPEUTIC TAB PO SCH (08:29)
[2018-02-25] MEDS: Ascorbic Acid TAB* 500 MG PO SCH (08:29)
[2018-02-25] MEDS: Omeprazole CAP (NF) 20 MG CAP.DR PO SCH (08:30)
[2018-02-25] MEDS: CYCLOSPORINE 0.05% BOTH EYES SCH (08:40)
[2018-02-25] MEDS: Docusate CAP* 100 MG PO SCH ×2 (08:40→19:42)
[2018-02-25] MEDS: Polyethylene Glycol 3350* 17 GM PACKET PO SCH (08:40)
[2018-02-25] MEDS ORDERED: ROTIGOTINE 2 MG TOPICAL SCH ×2 (09:00→12:00)
--- NOTE | 2018-02-25 12:43 | PN ---
Subjective Date of Service: 02/25/18 Interval History: Today pt is more alert and talkative. She knows her name and is asking about her medications. Daughter was at the bedside visiting for most of the morning and was updated. Per nursing, pt continues to have liquid stools; GI consult ordered. PT evaluation ordered, as daughter states that patient was able to transfer prior to admission, and we would like to assess her ability to move now. Objective Active Medications: Acetaminophen (Tylenol Tab*) 650 mg PO Q6H PRN Ascorbic Acid (Vitamin C Tab*) 500 mg PO DAILY ANANDA Aspirin (Aspirin Ec Tab*) 81 mg PO DAILY ANANDA Carbidopa/Levodopa (Sinemet 25/100 Tab(*)) 2 tab PO 0500,0830,1100 ANANDA Carbidopa/Levodopa (Sinemet 25/100 Tab(*)) 2 tab PO 1730,1930 ANANDA Carbidopa/Levodopa (Sinemet Cr 50/200(*)) 1 tab.cr PO 2200,0200 ANANDA Cetirizine HCl (Zyrtec*) 10 mg PO DAILY ANANDA Cyclosporine (Restasis 0.05% Ophth) 1 drop BOTH EYES DAILY ANANDA Diltiazem HCl (Cardizem Cd Cap*) 180 mg PO DAILY ANANDA Docusate Sodium (Colace Cap*) 100 mg PO BID ANANDA Heparin Sodium (Porcine) (Heparin Vial(*)) 5,000 units SUBCUT Q8HR ANANDA Sodium Chloride (Ns 0.9% 1000 Ml*) 1,000 mls @ 125 mls/hr IV PER RATE ANANDA Metronidazole/Sodium Chloride (Flagyl 500 Mg Ivpb*) 500 mg in 100 mls @ 100 mls /hr IVPB Q8H ANANDA Cefepime HCl (Maxipime 2 Gm In Dextrose Duplex (*)) 2 gm in 50 mls @ 100 mls/ hr IV Q12H ANANDA Levothyroxine Sodium (Synthroid Tab*) 25 mcg PO 0600 ANANDA Losartan Potassium (Cozaar Tab*) 50 mg PO DAILY ANANDA Multi-Ingredient Liniment/Rub (Rashad Kirk*) 1 applic TOPICAL BID PRN Multivitamins (Theragran Tab*) 1 tab PO DAILY ANANDA Omeprazole (Prilosec Cap*) 20 mg PO DAILY ANANDA Oxybutynin Chloride (Ditropan Tab*) 5 mg PO DAILY ANANDA Polyethylene Glycol/Electrolytes (Miralax*) 17 gm PO DAILY ANANDA Sertraline HCl (Zoloft*) 25 mg PO DAILY ANANDA Vital Signs: Temp Pulse Resp BP Pulse Ox 97.6 F 68 18 118/60 93 02/25/18 07:23 02/25/18 12:31 02/25/18 07:23 02/25/18 12:31 02/25/18 07:23 Oxygen Devices in Use Now: None Appearance: Pt is awake and alert upon entering; she is resting comfortably. Eyes: No Scleral Icterus Ears/Nose/Mouth/Throat: NL Teeth, Lips, Gums, Mucous Membranes Moist Neck: NL Appearance and Movements; NL JVP, Trachea Midline Respiratory: Symmetrical Chest Expansion and Respiratory Effort, Clear to Auscultation, - - without wheeze, rales, rhonchi Cardiovascular: NL Sounds; No Murmurs; No JVD, RRR, No Edema Abdominal: - - Bowel sounds in all quadrants; diffusely tender to deep palpation Extremities: No Edema, No Clubbing, Cyanosis Skin: - - Erythema at site of telemetry stickers Neurological: - - Resting tremor b/l hands Result Diagrams: 02/25/18 05:22 02/25/18 05:22 Additional Lab and Data: Lab Results 02/22/18 02/22/18 02/22/18 Range/Units 21:59 21:59 21:59 WBC 18.0 H (3.5-10.8) 10^3/ul RBC 4.44 (4.00-5.40) 10^6/ul Hgb 13.5 (12.0-16.0) g/dl Hct 41 (35-47) % MCV 93 (80-97) fL MCH 30 (27-31) pg MCHC 33 (31-36) g/dl RDW 14 (10.5-15) % Plt Count 345 (150-450) 10^3/ul MPV 8.5 (7.4-10.4) fL Neut % (Auto) 83.8 % Lymph % (Auto) 9.6 % [place] % (Auto) 5.7 % Eos % (Auto) 0.2 % Baso % (Auto) 0.7 % Absolute Neuts (auto) 15.1 H (1.5-7.7) 10^3/ul Absolute Lymphs (auto) 1.7 (1.0-4.8) 10^3/ul Absolute Monos (auto) 1.0 H (0-0.8) 10^3/ul Absolute Eos (auto) 0 (0-0.6) 10^3/ul Absolute Basos (auto) 0.1 (0-0.2) 10^3/ul Absolute Nucleated RBC 0 10^3/ul Nucleated RBC % 0 INR (Anticoag Therapy) 0.98 (0.77-1.02) Sodium 137 (135-145) mmol/L Potassium 4.0 (3.5-5.0) mmol/L Chloride 102 (101-111) mmol/L Carbon Dioxide 26 (22-32) mmol/L Anion Gap 9 (2-11) mmol/L BUN 38 H (6-24) mg/dL Creatinine 1.05 H (0.51-0.95) mg/dL Est GFR ( Amer) 60.1 (>60) Est GFR (Non-Af Amer) 49.7 (>60) BUN/Creatinine Ratio 36.2 H (8-20) Glucose 153 H (70-100) mg/dL Lactic Acid (0.5-2.0) mmol/L Calcium 9.9 (8.6-10.3) mg/dL Magnesium (1.9-2.7) mg/dL Total Bilirubin 1.00 (0.2-1.0) mg/dL AST 15 (13-39) U/L ALT 3 L (7-52) U/L Alkaline Phosphatase 79 (34-104) U/L Troponin I (<0.04) ng/mL C-Reactive Protein 176.49 H (<8.01) mg/L Total Protein 7.3 (6.4-8.9) g/dL Albumin 4.0 (3.2-5.2) g/dL Globulin 3.3 (2-4) g/dL Albumin/Globulin Ratio 1.2 (1-3) Lipase < 10 L (11.0-82.0) U/L Urine Color Urine Appearance Urine pH (5-9) Ur Specific [place] (1.010-1.030) Urine Protein (Negative) Urine Ketones (Negative) Urine Blood (Negative) Urine Nitrate (Negative) Urine Bilirubin (Negative) Urine Urobilinogen (Negative) Ur Leukocyte Esterase (Negative) Urine Glucose (Negative) 02/22/18 02/22/18 02/22/18 Range/Units 22:39 23:31 23:31 WBC (3.5-10.8) 10^3/ul RBC (4.00-5.40) 10^6/ul Hgb (12.0-16.0) g/dl Hct (35-47) % MCV (80-97) fL MCH (27-31) pg MCHC (31-36) g/dl RDW (10.5-15) % Plt Count (150-450) 10^3/ul MPV (7.4-10.4) fL Neut % (Auto) % Lymph % (Auto) % [place] % (Auto) % Eos % (Auto) % Baso % (Auto) % Absolute Neuts (auto) (1.5-7.7) 10^3/ul Absolute Lymphs (auto) (1.0-4.8) 10^3/ul Absolute Monos (auto) (0-0.8) 10^3/ul Absolute Eos (auto) (0-0.6) 10^3/ul Absolute Basos (auto) (0-0.2) 10^3/ul Absolute Nucleated RBC 10^3/ul Nucleated RBC % INR (Anticoag Therapy) (0.77-1.02) Sodium (135-145) mmol/L Potassium (3.5-5.0) mmol/L Chloride (101-111) mmol/L Carbon Dioxide (22-32) mmol/L Anion Gap (2-11) mmol/L BUN (6-24) mg/dL Creatinine (0.51-0.95) mg/dL Est GFR ( Amer) (>60) Est GFR (Non-Af Amer) (>60) BUN/Creatinine Ratio (8-20) Glucose (70-100) mg/dL Lactic Acid 1.6 (0.5-2.0) mmol/L Calcium (8.6-10.3) mg/dL Magnesium 2.0 (1.9-2.7) mg/dL Total Bilirubin (0.2-1.0) mg/dL AST (13-39) U/L ALT (7-52) U/L Alkaline Phosphatase (34-104) U/L Troponin I 0.00 (<0.04) ng/mL C-Reactive Protein (<8.01) mg/L Total Protein (6.4-8.9) g/dL Albumin (3.2-5.2) g/dL Globulin (2-4) g/dL Albumin/Globulin Ratio (1-3) Lipase (11.0-82.0) U/L Urine Color Yellow Urine Appearance Clear Urine pH 6.0 (5-9) Ur Specific [place] 1.014 (1.010-1.030) Urine Protein Negative (Negative) Urine Ketones Negative (Negative) Urine Blood Negative (Negative) Urine Nitrate Negative (Negative) Urine Bilirubin Negative (Negative) Urine Urobilinogen Negative (Negative) Ur Leukocyte Esterase Negative (Negative) Urine Glucose Negative (Negative) Microbiology and Other Data: Microbiology 02/22/18 22:00 Stool Occult Blood (MELITON) - Final Stool EKG Data: ns no acute st t changes Assess/Plan/Problems-Billing Assessment: this is a 87 yr old with mod dementia from snf presented to er after she was found to have blood in stool. as per er, she was found to have abd pain and was found to have loose stool upon rectal ---> ct of abd/pelvis showed + sigmoid colitis ---> intial wbc is 18 got levaquin and flagyl from er due to pcn - Patient Problems (1) Sigmoid diverticulitis Comment: -Pt without fevers, elevated WBC -Continue clear liguids as tolerated as pt continues to have liquid stool; GI consulted -Continue Levaquin, Flagyl -Continue CBC, CRP trend (2) Blood in stool Comment: -Likely related to colitis, diverticulitis -Pt remains asymptomatic, and hgb is low, but stable; no need to transfuse now -Continue to trend (3) Parkinson disease Comment: -Pt is agreeable to PO Sinemet -Neupro d/c'd and Sinemet restarted at patients home doses (4) Hypokalemia Comment: -Pt continues to be hypokalemic, despite repletion yesterday. Mg level checked and was low; pt repleted with potassium and mg today. -Repeat BMP tomorrow (5) Dehydration Comment: -Continue IVF -Monitor I/O, electrolytes (6) Dementia Comment: -Pt is improving -Continue to monitor (7) HTN (hypertension) Comment: -BP stable last 24h -Continue losartan, cardizem (8) Hypothyroidism Comment: -Continue Synthroid (9) DVT prophylaxis Comment: -Continue Heparin (10) DNR (do not resuscitate) Status and Disposition: Inpatient for IV antibiotics and continued treatment. Return to [facility] when medically stable.
--- NOTE | 2018-02-25 23:39 | CONS ---
GASTROENTEROLOGY CONSULT: DATE OF CONSULT: 02/25/18 CONSULTING PHYSICIAN: Inderjit Wall.* REASON FOR CONSULTATION: Diarrhea in a woman admitted 3 days ago with complaints of abdominal pain and passing blood. HISTORY: This 87-year-old woman who has dementia, parkinsonism, hypothyroidism , GERD, depression, and asymptomatic gallstones has resided at a skilled nursing with a DNR order for a number of years. She is on a general diet at the [facility]. The skilled nursing noted she was passing blood and was brought to the emergency room. She was afebrile with normal vital signs, though her CBC was abnormal with white count 18.0, hemoglobin 13.5, hematocrit 41, and CRP 176. LFTs were normal with albumin 4.0. She was admitted, placed on cefepime and metronidazole and kept on clear liquids. Here in the hospital, she has had some small volume passages of mucoid material. They have been nonbloody. None occurred overnight last night. This morning, she passed a small mucoid smear, was not really a full stool. That was 10 hours ago and there has been no passage since then. The home medications listed on the reconciliation form include sertraline 25, omeprazole 20, Omnicef (cefdinir) 300 mg p.o. b.i.d., and azithromycin 500. Duration and indication is not clear. Over the next 4 days, her white count has fallen progressively and today was normal at 9.4. The hemoglobin fell also to 10.9. PAST MEDICAL HISTORY: 1. Dementia. 2. Parkinsonism. 3. Hypothyroidism. 4. GERD. 5. Asymptomatic gallstones. 6. Hysterectomy, 1968. 7. Right ankle fracture pinning, 1971. 8. History of fracture of the humerus, 2007. SOCIAL HISTORY: She has a granddaughter who is a public health nurse. She also has a daughter who lives nearby. REVIEW OF SYSTEMS: Per detailed review of the chart (patient a poor historian) , there is no history of syncope, arrhythmias, [place], valvular disease, congestive heart failure, hemoptysis, TB, jaundice, cholestasis, chronic skin disease, seizures. Dr. Weinstein' note from 2007 refers to a history of colon polyps. PHYSICAL EXAM: She is an elderly woman, not conversational unless spoken to, lying in bed, in no distress. She states she is feeling better today and when asked to explain, says "I am not floating anymore." HEENT exam shows no icterus. Her color is good. She has no adenopathy. Breath sounds are equal and clear, but diminished from poor effort. Heart sounds are regular. The abdomen is protuberant from body habitus but symmetric. Bowel sounds are normal. The abdomen is very soft, but with deep palpation she says ow and that is a widespread phenomenon. She is rolled to her side and there is some minimal dermatitis (erythema with no erosion) in the perianal area. Digital rectal shows diminished tone and she expels probably 50 cc of mostly clear mucus with a few wisps of blood. It is light brown, mostly mucoid and does not appear consistent with C. diff. A sample it, however, was collected and sent. Extremities show muscular atrophy symmetrically and rather atrophic skin without any chronic changes. RADIOLOGY REVIEW: Sigmoid colon thickening on 02/22/18. IMPRESSION: The presentation with bloody passage and elevated white count that is rapidly diminishing without any signs of classic gastroenteritis is most suggestive of ischemic colitis. Her treatment chosen so far is conservative and she is improving. The antibiotics are probably not required. Her diet can be increased. Stool control is expected to be suboptimal with her age and dementia so the definition of diarrhea may vary. Addendum: stool C diff negative - collected at [facility] [id number]/[id number] #: [id number] [facility]ITAL[facility]
[2018-02-26] MEDS: metroNIDAZOLE IV 500 MG/100ML* 500 MG/100 ML BAG IVPB SCH (00:27)
[2018-02-26] MEDS: Carbidopa/Levodop CR 50/200(*) TAB.CR PO SCH (00:58)
[2018-02-26] MEDS: Cefepime* 2 GM in Dextrose 50mL Q12H (Duplex) IV SCH (01:37)
[2018-02-26] MEDS: Carbidopa/Levodop 25/100 MG TAB(*) PO SCH ×5 (05:45→19:37)
[2018-02-26] MEDS: Levothyroxine TAB* 25 MCG TAB PO SCH (05:45)
[2018-02-26] MEDS: Heparin VIAL(*) 5000 UNITS/ML VIAL (FIVE THOUSAND) SUBCUT SCH ×3 (05:49→21:59)
[2018-02-26] MEDS: NS 0.9% 1000 ML* 1,000 ML IV SCH ×2 (08:27→17:45)
--- NOTE | 2018-02-26 08:40 | PN ---
Subjective Date of Service: 02/26/18 Interval History: Pt is agitated, but cooperative stating that she would like to get up. Per nurse report, pt continues to have appx 1 loose stool per day, described as "diarrhea." Nursing states that, when the patient is confused, she tends to have trouble swallowing, but is fine when she is oriented. Objective Active Medications: Acetaminophen (Tylenol Tab*) 650 mg PO Q6H PRN Ascorbic Acid (Vitamin C Tab*) 500 mg PO DAILY ANANDA Aspirin (Aspirin Ec Tab*) 81 mg PO DAILY ANANDA Carbidopa/Levodopa (Sinemet 25/100 Tab(*)) 2 tab PO 0500,0830,1100 ANANDA Carbidopa/Levodopa (Sinemet 25/100 Tab(*)) 2 tab PO 1730,1930 ANANDA Carbidopa/Levodopa (Sinemet Cr 50/200(*)) 1 tab.cr PO 2200,0200 ANANDA Cetirizine HCl (Zyrtec*) 10 mg PO DAILY ANANDA Cyclosporine (Restasis 0.05% Ophth) 1 drop BOTH EYES DAILY ANANDA Diltiazem HCl (Cardizem Cd Cap*) 180 mg PO DAILY ANANDA Docusate Sodium (Colace Cap*) 100 mg PO BID ANANDA Heparin Sodium (Porcine) (Heparin Vial(*)) 5,000 units SUBCUT Q8HR ANANDA Sodium Chloride (Ns 0.9% 1000 Ml*) 1,000 mls @ 125 mls/hr IV PER RATE ANANDA Metronidazole/Sodium Chloride (Flagyl 500 Mg Ivpb*) 500 mg in 100 mls @ 100 mls /hr IVPB Q8H ANANDA Cefepime HCl (Maxipime 2 Gm In Dextrose Duplex (*)) 2 gm in 50 mls @ 100 mls/ hr IV Q12H ANANDA Levothyroxine Sodium (Synthroid Tab*) 25 mcg PO 0600 ANANDA Losartan Potassium (Cozaar Tab*) 50 mg PO DAILY ANANDA Multi-Ingredient Liniment/Rub (Rashad Kirk*) 1 applic TOPICAL BID PRN Multivitamins (Theragran Tab*) 1 tab PO DAILY ANANDA Omeprazole (Prilosec Cap*) 20 mg PO DAILY ANANDA Oxybutynin Chloride (Ditropan Tab*) 5 mg PO DAILY ANANDA Polyethylene Glycol/Electrolytes (Miralax*) 17 gm PO DAILY ANANDA Sertraline HCl (Zoloft*) 25 mg PO DAILY ANANDA Vital Signs: Temp Pulse Resp BP Pulse Ox 97.2 F 70 18 131/66 95 02/26/18 07:58 02/26/18 07:58 02/26/18 07:58 02/26/18 07:58 02/26/18 07:58 Oxygen Devices in Use Now: None Appearance: Pt in bed, laying on side; in no distress, but is agitated and occasionally confused and eager to get out of the hospital. Eyes: No Scleral Icterus Ears/Nose/Mouth/Throat: NL Teeth, Lips, Gums, Mucous Membranes Moist Neck: NL Appearance and Movements; NL JVP, Trachea Midline Respiratory: Symmetrical Chest Expansion and Respiratory Effort, - - Diminished breath sounds, as not compliant with breathing instructions; without wheeze, rales, rhonchi. Cardiovascular: NL Sounds; No Murmurs; No JVD, RRR, No Edema Abdominal: - - Normoactive bowel sounds in all quadrants; tender to palpation with pt saying "ow" upon deep palpation. Extremities: No Edema, No Clubbing, Cyanosis Skin: - - Skin abrasions on upper chest b/l due to telemetry stickers Neurological: - - A/O to self and location Nutrition: Taking PO's Result Diagrams: 02/27/18 06:56 02/26/18 10:46 Microbiology and Other Data: Microbiology 02/22/18 22:00 Stool Occult Blood (MELITON) - Final Stool Assess/Plan/Problems-Billing Assessment: This is a 87 yr old with mod dementia from snf presented to er after she was found to have blood in stool. GI assessed the patient, she continues to be C. diff negative. She likely has ischemic colitis. - Patient Problems (1) Sigmoid diverticulitis Comment: -Pt without fevers, elevated WBC, and CRP continues to trend down; pt continues to have 1 loose "diarrhea" BM per day -GI consulted- pt C. diff negative; advance diet, and need for antibiotics is probably not required -Discontinue Levaquin, Flagyl -Miralax, Colace to PRN constipation -Advance diet to Full Liquids for lunch -Continue to monitor (2) Blood in stool Comment: -Likely related to colitis, diverticulitis -Pt remains asymptomatic, hgb is trending up -Continue to trend (3) Difficulty swallowing Comment: -Continue full liquid diet with thickened liquids -Swallow evaluation (4) Parkinson disease Comment: -Continue PO Sinemet at pt home doses (5) Hypomagnesemia Comment: -Mg remains low, despite replacement yesterday -Mg 40mg IV now -Recheck in a.m. (6) Hypokalemia Comment: -Pt is on low end of normal at 3.5 -Potassium 20 qd ordered, starting today -Repeat BMP tomorrow (7) Dehydration Comment: -Continue IVF -Monitor I/O, electrolytes (8) Dementia Comment: -Pt is improving -Continue to monitor (9) HTN (hypertension) Comment: -BP stable last 24h -Continue losartan, cardizem (10) Hypothyroidism Comment: -Continue Synthroid (11) Abrasion Comment: -Abrasion to upper chest -Pt in NSR throughout hospital stay without any telemetry abnormalities -D/c telemetry for now; continue to monitor potassium levels -Apply triple antibiotic tid (12) DVT prophylaxis Comment: -Continue Heparin (13) DNR (do not resuscitate) Status and Disposition: Inpatient for IV antibiotics and continued treatment. Return to [facility] when medically stable.
[2018-02-26] MEDS ORDERED: Docusate CAP* 100 MG PO PRN (09:01)
[2018-02-26] MEDS ORDERED: Polyethylene Glycol 3350* 17 GM PACKET PO PRN (09:02)
[2018-02-26] MEDS: Sertraline* 25 MG TAB PO SCH (10:21)
[2018-02-26] MEDS: Diltiazem CD CAP* 180 MG PO SCH (10:21)
[2018-02-26] MEDS: Losartan TAB* 25 MG PO SCH (10:21)
[2018-02-26] MEDS: Vitamin THERAPEUTIC TAB PO SCH (10:25)
[2018-02-26] MEDS: CYCLOSPORINE 0.05% BOTH EYES SCH (10:25)
[2018-02-26] MEDS: Omeprazole CAP (NF) 20 MG CAP.DR PO SCH (10:25)
[2018-02-26] MEDS: Ascorbic Acid TAB* 500 MG PO SCH (10:25)
[2018-02-26] MEDS: Oxybutynin TAB* 5 MG PO SCH (10:25)
[2018-02-26] MEDS: Aspirin EC TAB* 81 MG TAB.EC PO SCH (10:25)
[2018-02-26] MEDS: Cetirizine* 10 MG TAB PO SCH (10:25)
[2018-02-26] MEDS: Neomycin/Polym/Bacit TOP OINT* 15 GM TOPICAL SCH ×3 (10:25→19:37)
[2018-02-26 11:01] LABS: ABS Basophils 0.1 10^3/ul (0-0.2); ABS Eosinophils 0.3 10^3/ul (0-0.6); ABS Lymphocytes 1.4 10^3/ul (1.0-4.8); ABS Monocytes 0.5 10^3/ul (0-0.8); ABS Neutrophils 7.4 10^3/ul (1.5-7.7); ABS Nucleated RBC 0 10^3/ul; Hematocrit 36 % (35-47); Hemoglobin 11.8 g/dl (12.0-16.0); Lymphocyte % 14.1 %; Mean Corpuscular HGB Conc 33 g/dl (31-36); Mean Corpuscular Hemoglobin 31 pg (27-31); Mean Corpuscular Volume 93 fL (80-97); Mean Platelet Volume 8.7 fL (7.4-10.4); Nucleated Red Blood Cells % 0; Platelet Count 287 10^3/ul (150-450); Red Blood Count 3.85 10^6/ul (4.00-5.40); Red Cell Distribution Width 14 % (10.5-15); White Blood Count 9.6 10^3/ul (3.5-10.8)
[2018-02-26] MEDS: Docusate CAP* 100 MG PO SCH (11:31)
[2018-02-26] MEDS: Polyethylene Glycol 3350* 17 GM PACKET PO SCH (11:31)
[2018-02-26 11:49] LABS: Calcium 8.4 mg/dL (8.6-10.3); Magnesium 1.5 mg/dL (1.9-2.7)
[2018-02-26 11:51] LABS: Potassium 3.5 mmol/L (3.5-5.0)
[2018-02-26 11:55] LABS: BUN/Creatinine Ratio 7.8 (8-20); C Reactive Protein 46.47 mg/L (<8.01)
[2018-02-26] MEDS ORDERED: Magnesium Sulf 4 GM/100 ML IV* 4,000 MG/100 ML BAG IVPB ONE (12:30)
[2018-02-26] MEDS: Potassium Chlor TAB* 20 MEQ TAB.ER PO SCH (13:12)
[2018-02-27] MEDS: Carbidopa/Levodop CR 50/200(*) TAB.CR PO SCH ×3 (00:21→23:04)
[2018-02-27] MEDS ORDERED: Melatonin 3 MG TAB PO ONE ×2 (01:45→01:47)
[2018-02-27] MEDS: NS 0.9% 1000 ML* 1,000 ML IV SCH ×4 (02:19→22:58)
[2018-02-27] MEDS: Heparin VIAL(*) 5000 UNITS/ML VIAL (FIVE THOUSAND) SUBCUT SCH ×3 (05:40→22:58)
[2018-02-27] MEDS: Carbidopa/Levodop 25/100 MG TAB(*) PO SCH ×5 (05:40→19:49)
[2018-02-27] MEDS: Levothyroxine TAB* 25 MCG TAB PO SCH (05:40)
[2018-02-27 07:03] LABS: ABS Basophils 0.1 10^3/ul (0-0.2); ABS Eosinophils 0.3 10^3/ul (0-0.6); ABS Lymphocytes 1.5 10^3/ul (1.0-4.8); ABS Monocytes 0.7 10^3/ul (0-0.8); ABS Neutrophils 7.4 10^3/ul (1.5-7.7); ABS Nucleated RBC 0 10^3/ul; Eosinophil % 2.5 %; Hematocrit 33 % (35-47); Hemoglobin 11.1 g/dl (12.0-16.0); Lymphocyte % 14.9 %; Mean Corpuscular HGB Conc 34 g/dl (31-36); Mean Corpuscular Hemoglobin 31 pg (27-31); Mean Corpuscular Volume 91 fL (80-97); Mean Platelet Volume 8.3 fL (7.4-10.4); Nucleated Red Blood Cells % 0; Platelet Count 323 10^3/ul (150-450); Red Cell Distribution Width 14 % (10.5-15)
[2018-02-27 07:31] LABS: BUN/Creatinine Ratio 5.2 (8-20); Calcium 8.3 mg/dL (8.6-10.3); EGFR Non-African American 98.6 (>60); Magnesium 2.1 mg/dL (1.9-2.7); Potassium 3.4 mmol/L (3.5-5.0)
[2018-02-27] MEDS: Sertraline* 25 MG TAB PO SCH (10:23)
[2018-02-27] MEDS: Diltiazem CD CAP* 180 MG PO SCH ×2 (10:23→10:58)
[2018-02-27] MEDS: Losartan TAB* 25 MG PO SCH (10:23)
[2018-02-27] MEDS: Omeprazole CAP (NF) 20 MG CAP.DR PO SCH ×2 (10:24→10:58)
[2018-02-27] MEDS: Oxybutynin TAB* 5 MG PO SCH ×2 (10:24→10:56)
[2018-02-27] MEDS: Ascorbic Acid TAB* 500 MG PO SCH ×2 (10:24→10:57)
[2018-02-27] MEDS: Potassium Chlor TAB* 20 MEQ TAB.ER PO SCH ×2 (10:24→19:49)
[2018-02-27] MEDS: Cetirizine* 10 MG TAB PO SCH ×2 (10:24→10:58)
[2018-02-27] MEDS: Aspirin EC TAB* 81 MG TAB.EC PO SCH ×2 (10:25→10:58)
[2018-02-27] MEDS: Vitamin THERAPEUTIC TAB PO SCH ×2 (10:25→10:57)
[2018-02-27] MEDS: CYCLOSPORINE 0.05% BOTH EYES SCH (10:26)
[2018-02-27] MEDS: Neomycin/Polym/Bacit TOP OINT* 15 GM TOPICAL SCH ×3 (10:35→19:49)
--- NOTE | 2018-02-27 10:42 | PN ---
Subjective Date of Service: 02/27/18 Interval History: Pt states she is doing "better." She has not had difficulty swallowing liquids since yesterday, and is doing well on thickened liquids. She has had 1 loose stool overnight and no diarrhea. She denies abdominal pain. Objective Active Medications: Acetaminophen (Tylenol Tab*) 650 mg PO Q6H PRN Ascorbic Acid (Vitamin C Tab*) 500 mg PO DAILY ANANDA Aspirin (Aspirin Ec Tab*) 81 mg PO DAILY ANANDA Carbidopa/Levodopa (Sinemet 25/100 Tab(*)) 2 tab PO 0500,0830,1100 ANANDA Carbidopa/Levodopa (Sinemet 25/100 Tab(*)) 2 tab PO 1730,1930 ANANDA Carbidopa/Levodopa (Sinemet Cr 50/200(*)) 1 tab.cr PO 2200,0200 ANANDA Cetirizine HCl (Zyrtec*) 10 mg PO DAILY ANANDA Cyclosporine (Restasis 0.05% Ophth) 1 drop BOTH EYES DAILY ANANDA Diltiazem HCl (Cardizem Cd Cap*) 180 mg PO DAILY ANANDA Docusate Sodium (Colace Cap*) 100 mg PO BID PRN Heparin Sodium (Porcine) (Heparin Vial(*)) 5,000 units SUBCUT Q8HR ANANDA Sodium Chloride (Ns 0.9% 1000 Ml*) 1,000 mls @ 125 mls/hr IV PER RATE ANANDA Levothyroxine Sodium (Synthroid Tab*) 25 mcg PO 0600 ANANDA Losartan Potassium (Cozaar Tab*) 50 mg PO DAILY ANANDA Multi-Ingredient Liniment/Rub (Rashad Kirk*) 1 applic TOPICAL BID PRN Multivitamins (Theragran Tab*) 1 tab PO DAILY ANANDA Neomycin/Polymyxin/Bacitracin (Neosporin Top Oint Tube*) 1 applic TOPICAL TID ANANDA Omeprazole (Prilosec Cap*) 20 mg PO DAILY ANANDA Oxybutynin Chloride (Ditropan Tab*) 5 mg PO DAILY ANANDA Polyethylene Glycol/Electrolytes (Miralax*) 17 gm PO DAILY PRN Potassium Chloride (Klor Con Er Tab*) 20 meq PO DAILY ANANDA Sertraline HCl (Zoloft*) 25 mg PO DAILY ANANDA Vital Signs: Temp Pulse Resp BP Pulse Ox 97.9 F 75 32 146/78 97 02/27/18 08:19 02/27/18 08:19 02/27/18 08:19 02/27/18 08:19 02/27/18 08:19 Oxygen Devices in Use Now: None Appearance: Pt is awake and alert, responding to questions, occasionally confused Eyes: No Scleral Icterus, PERRLA Ears/Nose/Mouth/Throat: NL Teeth, Lips, Gums, Mucous Membranes Moist Neck: NL Appearance and Movements; NL JVP, Trachea Midline Respiratory: Symmetrical Chest Expansion and Respiratory Effort, Clear to Auscultation Cardiovascular: NL Sounds; No Murmurs; No JVD, RRR, No Edema Abdominal: NL Sounds; No Tenderness; No Distention, - - tender to deep palpation Extremities: No Edema, No Clubbing, Cyanosis Skin: - - b/l upper chest abrasions erythematous, non-weeping, and improved from yesterday Result Diagrams: 02/27/18 06:56 02/27/18 06:56 EKG Data: ns no acute st t changes Assess/Plan/Problems-Billing Assessment: This is a 87 yr old with mod dementia from snf presented to er after she was found to have blood in stool. GI assessed the patient, she continues to be C. diff negative. She likely has ischemic colitis. - Patient Problems (1) Sigmoid diverticulitis Comment: -Pt without fevers, elevated WBC; improved to 1 loose stool per day. -Advance diet to soft diet with thickened liquids for lunch -Continue to monitor (2) Difficulty swallowing Comment: -No issues since change to thickened liquids -Advance diet to soft with thickened liquids -Swallow evaluation (3) Parkinson disease Comment: -Continue PO Sinemet at pt home doses (4) Hypokalemia Comment: -Pt low at 3.4 -Increase Potassium to 20 meQ BID -Repeat BMP and Mg tomorrow (5) Hypomagnesemia Comment: -Normalized today at 2.1 -Recheck tomorrow (6) Dehydration Comment: -Decrease BUN, may be due to overhydration -Decrease rate to 75cc/h -Recheck BUN tomorrow (7) Dementia Comment: -Pt is continuing to improving -Continue to monitor (8) Abrasion Comment: -Abrasion to upper chest is improving -Continue triple antibiotic tid (9) HTN (hypertension) Comment: -BP stable last 24h -Continue losartan, cardizem (10) Hypothyroidism Comment: -Continue Synthroid (11) DVT prophylaxis Comment: -Continue Heparin (12) DNR (do not resuscitate) Status and Disposition: Inpatient. Electrolyte abnormalities. Swallow eval ordered. Return to [place] once stabilized.
[2018-02-27] MEDS ORDERED: Carbidopa/Levodop 25/100 MG TAB(*) PO ONE (23:02)
[2018-02-28] MEDS: Carbidopa/Levodop CR 50/200(*) TAB.CR PO SCH (02:32)
[2018-02-28] MEDS: Heparin VIAL(*) 5000 UNITS/ML VIAL (FIVE THOUSAND) SUBCUT SCH ×2 (06:10→13:25)
[2018-02-28] MEDS: Levothyroxine TAB* 25 MCG TAB PO SCH (06:10)
[2018-02-28] MEDS: Carbidopa/Levodop 25/100 MG TAB(*) PO SCH ×3 (06:10→13:25)
[2018-02-28 07:45] LABS: BUN/Creatinine Ratio 5.2 (8-20); Calcium 8.5 mg/dL (8.6-10.3); EGFR Non-African American 98.6 (>60); Magnesium 1.7 mg/dL (1.9-2.7); Potassium 3.5 mmol/L (3.5-5.0)
[2018-02-28] MEDS ORDERED: Magnesium Sulfate 2 GM IV* 2 GM/50 ML BAG IVPB ONE (10:00)
[2018-02-28] MEDS: Sertraline* 25 MG TAB PO SCH (10:35)
[2018-02-28] MEDS: Aspirin EC TAB* 81 MG TAB.EC PO SCH ×2 (10:36→11:06)
[2018-02-28] MEDS: Neomycin/Polym/Bacit TOP OINT* 15 GM TOPICAL SCH (10:36)
[2018-02-28] MEDS: Potassium Chlor TAB* 20 MEQ TAB.ER PO SCH (10:36)
[2018-02-28] MEDS: Losartan TAB* 25 MG PO SCH (10:36)
[2018-02-28] MEDS: Ascorbic Acid TAB* 500 MG PO SCH (11:05)
[2018-02-28] MEDS: Cetirizine* 10 MG TAB PO SCH (11:06)
[2018-02-28] MEDS: Omeprazole CAP (NF) 20 MG CAP.DR PO SCH (11:06)
[2018-02-28] MEDS: CYCLOSPORINE 0.05% BOTH EYES SCH (11:06)
[2018-02-28] MEDS: Diltiazem CD CAP* 180 MG PO SCH (11:06)
[2018-02-28] MEDS: Vitamin THERAPEUTIC TAB PO SCH (11:07)
[2018-02-28] MEDS: Oxybutynin TAB* 5 MG PO SCH (11:07)
[2018-02-28 11:27] VITALS: BP 154/90
--- NOTE | 2018-02-28 13:18 | DS ---
CC: Dr. Weinstein; [facility] * MEDICINE DISCHARGE SUMMARY: DATE OF ADMISSION: 02/23/18 DATE OF DISCHARGE: 02/28/18 PRIMARY CARE PHYSICIAN: [facility], Dr. Summer Weinstein PROVIDER: Shaquille Granados NP ATTENDING PHYSICIAN: Cem Stevens MD * (as dictated by Shaquille Granados NP). CONSULTING PHYSICIANS: Dr. Rafat Kim PRIMARY DISCHARGE DIAGNOSES: 1. Colitis, suspected ischemic colitis. Previously thought to be sigmoid diverticulitis. 2. Gastroenteritis. 3. Difficulty swallowing, new recommendations to diet, dietary textures and liquids. 4. Hypokalemia. 5. Hypomagnesemia. 6. Dehydration. SECONDARY DISCHARGE DIAGNOSES: 1. Parkinson's disease. 2. Dementia. 3. Hypothyroidism. 4. Gastroesophageal reflux disease. 5. History of asymptomatic gallstones. MEDICATIONS AT DISCHARGE: 1. Coenzyme Q10 four capsules daily. 2. Tylenol 1000 mg every 6 hours p.r.n. 3. Simvastatin 10 mg daily. 4. Sertraline 25 mg daily. 5. MiraLax 17 grams daily. 6. Oxybutynin 5 mg daily. 7. Omeprazole 20 mg daily. 8. Multivitamin with calcium 1 daily. 9. Losartan/hydrochlorothiazide 1 tab daily. 10. Loratadine 10 mg daily. 11. Levothyroxine 25 micrograms daily. 12. Docusate 100 mg b.i.d. 13. Restasis 0.05% eye drops 1 drop to both eyes daily. 14. Carbidopa/levodopa 25/100 two tabs at 0500, 0830, 1100, 1730 and 1930. 15. Carbidopa/levodopa CR 50/200 one tab at 2200 and 0200. 16. Nifedipine 100 mg b.i.d. p.r.n. 17. Aspirin 81 mg daily. 18. Ascorbic acid 500 mg daily. 19. Potassium chloride 20 mEq b.i.d. 20. Neosporin 1 application topical t.i.d. 21. Diltiazem immediate release 60 mg every 8 hours. This is a new order. Discontinued Medications: 1. Cefepime 300 mg b.i.d. 2. Azithromycin 500 mg daily. 3. Cardizem CD 180 mg daily. DIAGNOSTIC STUDIES DURING THIS ADMISSION: CT of the abdomen and pelvis from 02/22/18. Impression: 1. Thickening of the wall of the sigmoid colon suspicious for colitis. 2. Cholelithiasis. 3. Hepatomegaly. 4. Moderate hiatal hernia. 5. Changes involving the spine per the body of the report. 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 Chest x-ray from 02/22/18. No evidence of active cardiopulmonary disease. HOSPITAL COURSE OF STAY: For full details, please refer to the full medical record and the admission notes from Dr. Mitchell. In summary, this is an 87-year- old female who was admitted on 02/23/[address] [facility] with concern for blood in her stool. CT scan in the ER did show concern for sigmoid diverticulitis and she was appropriately started on IV Levaquin and Flagyl, and placed on clear liquids. Concurrently she did have abdominal pain and initial white blood cell count of 18,000. She was seen in consultation on by Dr. Kim from Gastroenterology with concern for persistent diarrhea , abdominal pain and passing blood. It was felt that with bloody passage and elevated white count, that did diminish over the course of her stay, that this was most suggestive of ischemic colitis. She was recommended to discontinue antibiotics and advance her diet, which was done. However, an acute concern was the patient's ability to swallow safely. Nursing had reported that the patient had difficulty swallowing. Nursing staff noted that this was more pronounced when the patient had bouts of confusion, although reversible causes have been found. A swallow study performed on 02/28/18 by the speech therapist gave recommendation for pureed textures with nectar thickened liquids and no straws. She can have small pills if tolerated with extra bites of pureed foods or nectar thick liquids, but some of the larger pills or capsules needed to be crushed or opened. For this reason we did change her Cardizem CD to a short acting formulation as this could not be crushed and she had difficulty swallowing this. On day of discharge patient has been without fever and white blood cell count has resolved. Her H&H remained stable. Her CMP has improved. Renal function has returned to baseline. Potassium is at 3.5 on day of discharge. She will be continued on her potassium pills with the plan to followup with a CMP later this week. Magnesium 1.7 which was replaced prior to discharge. CRP is also improved. She is tolerated p.o. intake, but is recommended to continue on recommended textures until reevaluated by Speech Therapy at [facility]. PHYSICAL EXAMINATION: This is an 87-year-old female who appears stated age. She is sitting up in bed in no acute distress. She does have occasional agitation, but is eager to go home. HEENT: Extraocular movements are intact. Pupils are equal and round. Oral mucosa is moist. Neck: Supple. No lymphadenopathy appreciated. Cardiac: S1, S2 heart sounds with regular rate and rhythm. No murmurs appreciated. No peripheral edema noted. Lungs: Clear to auscultation. Lung sounds are diminished but there is fair aeration throughout all lung saleh. She does not provide deep breaths as instructed. Abdomen: Normoactive bowel sounds in all 4 quadrants. Mild diffuse tenderness with palpation. Musculoskeletal: Moves all extremities. No clubbing or cyanosis noted. Skin: There are bright red skin abrasions to the upper chest bilaterally from telemetry leads. They are not weeping. There is no blistering or open areas. Neuro: She is alert and oriented to self and knows she is in a hospital. She recognizes her family. FOLLOWUP NEEDS: Again, she will need followup blood work on Wednesday03/04/18 with followup BMP and magnesium. She should have followup Speech Therapy to evaluate her swallowing ability and see if she can advance in her textures and diet. She no longer requires antibiotics and has been improving. Again tolerating p.o. fluids and p.o. intake. DIET: Blanding thickened liquids, pureed textures and resume previous diet. ACTIVITY: As tolerated. CONDITION: Improved, stable. DISPOSITION: To [facility]. TIME SPENT: Time spent on this discharge was approximately 45 minutes with more than half that time spent face to face with the patient and family members reviewing plan of care. Again, this is only a brief summary of the patient's hospital course of stay. For full details, please refer to the full medical record. If there are any further questions or concerns, please feel free to contact me at [phone]. SHAQUILLE GRANADOS, BRISEYDA [id number]/[facility] #: [id number] MTDD
[2018-02-28] MEDS ORDERED: Diltiazem TAB* 60 MG PO SCH (14:00)
== END 2018-02-28 15:00 | DRG 394 ==
LOC: ED 20:47 → MED 02-23 01:10
PROVIDERS: ADMIT Internal Medicine; ATTEND Internal Medicine
DX: K55.8 Other vascular disorders of intestine (principal); K92.1 Melena; R65.10 Systemic inflammatory response syndrome (SIRS) of non-infectious origin without acute organ dysfunction; E86.0 Dehydration; G20 Parkinson's disease; R13.10 Dysphagia, unspecified; E83.42 Hypomagnesemia; F02.80 Dementia in other diseases classified elsewhere, unspecified severity, without behavioral disturbance, psychotic disturbance, mood disturbance, and anxiety; Z66 Do not resuscitate; E87.6 Hypokalemia; E03.9 Hypothyroidism, unspecified; K21.9 Gastro-esophageal reflux disease without esophagitis; K44.9 Diaphragmatic hernia without obstruction or gangrene; K80.80 Other cholelithiasis without obstruction; I10 Essential (primary) hypertension; M19.90 Unspecified osteoarthritis, unspecified site; F32.9 Major depressive disorder, single episode, unspecified; Z79.82 Long term (current) use of aspirin; Z79.899 Other long term (current) drug therapy; Z88.5 Allergy status to narcotic agent; Z88.8 Allergy status to other drugs, medicaments and biological substances; Z88.1 Allergy status to other antibiotic agents; Z91.030 Bee allergy status; Z82.49 Family history of ischemic heart disease and other diseases of the circulatory system
CPT/HCPCS: 36415; 71046; 74177; 80048; 80053; 81003; 82270; 83605; 83690; 83735; 84443; 84484; 85025; 85610; 86140; 86141; 87493; 87641; 93005; 99284; A9270-GY; G8981-GP-CM; G8982-GP-CK; J0692; J1644; J3475; J3480; J3486; J3490; Q9967

== ENCOUNTER 2018-08-12 18:05 | Inpatient (IN) | payer MEDICARE, OTHER ==
--- NOTE | 2018-08-12 18:24 | ED ---
Shortness of Breath - HPI Summary HPI Summary: Pt is an 87 y/o F presenting to the ED brought in by EMS for shortness of breath. She states she has felt terrible for the past 2 months, but it has gotten worse over the last couple of weeks. She reports nonproductive cough and fever associated with the SOB. - History of Current Complaint Chief Complaint: EDUpperRespComplaint Hx Obtained From: Patient Onset/Duration: Gradual Onset, Lasting Weeks, Still Present Timing: Constant Current Severity: Moderate Dyspnea At: Rest Aggravating Factors: Nothing Alleviating Factors: Nothing Associated Signs & Symptoms: Cough (Nonproductive), Fever - Allergy/Home Medications Allergies/Adverse Reactions: Allergies Allergy/AdvReac Type Severity Reaction Status Date / Time amantadine Allergy Unknown Verified 08/12/18 18:24 Reaction Details amoxicillin Allergy Unknown Verified 08/12/18 18:24 Reaction Details bee venom protein (honey bee) Allergy Anaphylatic Verified 08/12/18 18:24 Shock epinephrine [From EpiPen] Allergy Unknown Verified 08/12/18 18:24 Reaction Details hydrocodone Allergy Unknown Verified 08/12/18 18:24 Reaction Details meperidine [From Demerol] Allergy Unknown Verified 08/12/18 18:24 Reaction Details morphine Allergy Unknown Verified 08/12/18 18:24 Reaction Details procaine Allergy Unknown Verified 08/12/18 18:24 Reaction Details propoxyphene [From Darvon] Allergy Unknown Verified 08/12/18 18:24 Reaction Details PMH/Surg Hx/FS Hx/Imm Hx Previously Healthy: No Endocrine/Hematology History: Reports: Hx Thyroid Disease - hypo Denies: Hx Diabetes Cardiovascular History: Reports: Hx Hypercholesterolemia, Hx Hypertension Respiratory History: Reports: Hx Chronic Bronchitis - was taking Azithromycin on admission Denies: Hx Asthma, Hx Chronic Obstructive Pulmonary Disease (COPD) GI History: Reports: Hx Gastroesophageal Reflux Disease, Hx Ulcer - gerd Musculoskeletal History: Reports: Hx Arthritis, Hx Osteoporosis Denies: Hx Rheumatoid Arthritis Sensory History: Reports: Hx Cataracts, Hx Hearing Aid, Hx Hearing Problem Denies: Hx Contacts or Glasses Opthamlomology History: Reports: Hx Cataracts Denies: Hx Contacts or Glasses Neurological History: Reports: Hx Dementia - Pt was confused and could not communicate well, Other Neuro Impairments/Disorders - Parkinson's Psychiatric History: Reports: Hx Depression - Surgical History Surgery Procedure, Year, and Place: 1931 MASTOIDECTOMY RIGHT EAR. 1968 HYSTERECTOMY. 1971 FRACTURED RIGHT ANKLE. 1988 STAPEDECTOMY LEFT EAR. 1993 FRACTURED LEFT ANKLE. 1998 LAMINECTOMY L4 & L5. 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 2007 FRACTURE LEFT HUMEROUS. 2007 EYE LENS TRANSPLANT RIGHT Hx Anesthesia Reactions: No Infectious Disease History: No Infectious Disease History: Reports: Hx Tuberculosis - history Denies: Hx Clostridium Difficile, Hx Hepatitis, Hx Human Immunodeficiency Virus (HIV), Hx of Known/Suspected MRSA, Hx Shingles, Hx Known/Suspected VRE, Hx Known/Suspected VRSA, History Other Infectious Disease, Traveled Outside the [place] in Last 30 Days - Family History Known Family History: Positive: Cardiac Disease - Social History Alcohol Use: None Hx Substance Use: No Substance Use Type: Reports: None Hx Tobacco Use: No Smoking Status (MU): Never Smoked Tobacco Review of Systems Positive: Fever Positive: Shortness Of Breath, Cough All Other Systems Reviewed And Are Negative: Yes Physical Exam - Summary Physical Exam Summary: Appearance: Elderly woman lying on the stretcher in no acute distress Skin: Warm, dry, no obvious rash Eyes: sclera anicteric, no conjunctival pallor ENT: mucous membranes moist, pharynx appears normal Neck: Supple, nontender Respiratory: Scattered rhonchi without wheezing. Cardiovascular: Normal S1, S2. No murmurs. Normal distal pulses in tibial and radial bilaterally. Abdomen: Soft, nontender, normal active bowel sounds present Musculoskeletal: Normal, Strength/ROM Intact Neurological: Bilateral resting tremors of hands, A&Ox3, awake and alert, mentation is normal, speech is fluent and appropriate Psychiatric: affect is normal, does not appear anxious or depressed Triage Information Reviewed: Yes Vital Signs On Initial Exam: Initial Vitals Pulse Pulse Ox 76 91 08/12/18 18:09 08/12/18 18:09 Vital Signs Reviewed: Yes Diagnostics - Vital Signs Vital Signs Temp Pulse Resp BP Pulse Ox 08/12/18 18:15 79 21 167/96 90 08/12/18 18:12 97.2 F 82 16 167/96 92 08/12/18 18:09 76 91 - Laboratory Result Diagrams: 08/12/18 19:35 08/13/18 06:25 Lab Statement: Any lab studies that have been ordered have been reviewed, and results considered in the medical decision making process. - Radiology CXR Radiology Interpretation Completed By: ED Physician Summary of Radiographic Findings: No acute infiltrate, pending official radiology report. Course/Dx - Course Course Of Treatment: Pt is an 87 y/o F presenting to the ED brought in by EMS for shortness of breath. She states she has felt terrible for the past 2 months , but it has gotten worse over the last couple of weeks. She reports nonproductive cough and fever associated with the SOB. Pt's physical exam reveals bilateral scattered rhonchi with no wheezing. CXR shows no acute infiltrate, pending official radiology report. Pt will be signed out to Dr. Jones at shift change pending lab results. The pt is stable. - Diagnoses Provider Diagnoses: Pneumonia, Urinary tract infection Discharge - Sign-Out/Discharge Documenting (check all that apply): Sign-Out Patient Signing out patient TO: Ellis Jones - Discharge Plan Condition: Stable Disposition: ADMITTED TO [facility] - Billing Disposition and Condition Condition: STABLE Disposition: Admitted to [facility] - Attestation Statements Document Initiated by Scribe: Yes Documenting Scribe: Nia Salazar Provider For Whom Ezequiel is Documenting (Include Credential): Latrell Duncan MD. Scribe Attestation: Nia Helton, vianneyed for Latrell Duncan MD. on 08/13/18 at 1020. Scribe Documentation Reviewed: Yes Provider Attestation: The documentation as recorded by the scribeNia accurately reflects the service I personally performed and the decisions made by , Latrell Duncan MD. Status of Scribe Document: Viewed
[2018-08-12 19:54] LABS: ABS Basophils 0.1 10^3/ul (0-0.2); ABS Eosinophils 0.6 10^3/ul (0-0.6); ABS Lymphocytes 2.6 10^3/ul (1.0-4.8); ABS Monocytes 0.5 10^3/ul (0-0.8); ABS Neutrophils 7.6 10^3/ul (1.5-7.7); Eosinophil % 5.4 %; Hematocrit 38 % (35-47); Hemoglobin 12.3 g/dL (12.0-16.0); Lymphocyte % 22.8 %; Mean Corpuscular HGB Conc 33 g/dL (31-36); Mean Corpuscular Hemoglobin 30 pg (27-31); Mean Corpuscular Volume 93 fL (80-97); Mean Platelet Volume 8.8 fL (7.4-10.4); Platelet Count 410 10^3/uL (150-450); Red Blood Count 4.04 10^6 /uL (3.70-4.87); Red Cell Distribution Width 14 % (10-15); White Blood Count 11.6 10^3/uL (3.5-10.8)
[2018-08-12 20:03] LABS: INR 1.05 (0.82-1.09)
[2018-08-12 20:11] LABS: ALT < 3 U/L (7-52); AST 20 U/L (13-39); Alkaline Phosphatase 62 U/L (34-104); Anion Gap 8 mmol/L (2-11); BUN/Creatinine Ratio 25.8 (8-20); Blood Urea Nitrogen 24 mg/dL (6-24); CO2 Carbon Dioxide 27 mmol/L (22-32); Calcium 10.1 mg/dL (8.6-10.3); Chloride 104 mmol/L (101-111); EGFR African American 69.2 (>60); EGFR Non-African American 57.2 (>60); Globulin 3.9 g/dL (2-4); Glucose 110 mg/dL (70-100); Potassium 4.2 mmol/L (3.5-5.0); Sodium 139 mmol/L (135-145); Total Protein 7.9 g/dL (6.4-8.9)
[2018-08-12] MEDS ORDERED: NS 0.9% 1000 ML** 1,000 ML IV ONE (21:08)
[2018-08-12] MEDS ORDERED: Albuterol/Ipratropium NEB.SOL* Albuterol 2.5 MG/Ipratropium 0.5 MG 3 ML INH ONE (21:10)
[2018-08-12] MEDS ORDERED: Albuterol 2.5 MG/3 ML NEB.SOL* (0.083%) INH ONE (21:23)
[2018-08-12] MEDS: Albuterol 2.5 MG/3 ML NEB.SOL* (0.083%) INH SCH ×2 (21:29→21:41)
[2018-08-12] MEDS ORDERED: Iodixanol* (CONTRAST) 320 MG/ML 100 ML SDV IV ONE (22:05)
[2018-08-12 22:22] LABS: Urine Appearance Turbid; Urine Bacteria 2+ (Absent); Urine Bilirubin Negative (Negative); Urine Blood 1+ (Negative); Urine Color Yellow; Urine Glucose Negative (Negative); Urine Ketones Trace (Negative); Urine Nitrite Positive (Negative); Urine Protein 2+(100 mg/dL) (Negative); Urine Red Blood Cell 3+(>10/hpf) (Absent); Urine Specific Gravity 1.017 (1.010-1.030); Urine Urobilinogen Negative (Negative); Urine White Blood Cell 3+(>20/hpf) (Absent)
[2018-08-12] MEDS ORDERED: Levofloxacin 750 MG IVPREMIX(* 750 MG/150 ML BAG IVPB ONE (23:20)
--- NOTE | 2018-08-12 23:38 | ED ---
Progress - Progress Note Progress Note: Receiving sign-out from Dr. Duncan at shift change 1900. CTA Chest: 1. No evidence of pulmonary embolism in large caliber pulmonary arteries. Small caliber pulmonary arteries could not be assessed. 2. Moderate size hiatal hernia. 3. Other chronic findings, as above. ED Provider has reviewed this report. Labs reveal WBC 3+ A, Urine RBC 3+ A, Urine bacteria 2+ A, Urine Nitrate positive A, Absorbic Acid A. Dr. Alegira, hospitalist, accepted the patient for admission. A plan for admission was discussed with the patient and she was agreeable with this plan. Course/Dx - Course Course Of Treatment: Receiving sign-out from Dr. Duncan at shift change 1900. CTA Chest: 1. No evidence of pulmonary embolism in large caliber pulmonary arteries. Small caliber pulmonary arteries could not be assessed. 2. Moderate size hiatal hernia. 3. Other chronic findings, as above. ED Provider has reviewed this report. Labs reveal WBC 3+ A, Urine RBC 3+ A, Urine bacteria 2+ A , Urine Nitrate positive A, Absorbic Acid A. Dr. Alegria, hospitalist, accepted the patient for admission. A plan for admission was discussed with the patient and she was agreeable with this plan. - Diagnoses Provider Diagnoses: Pneumonia, Urinary tract infection Discharge - Sign-Out/Discharge Documenting (check all that apply): Patient Departure - Admission Receiving patient FROM: Latrell Duncan - At shift change 1900 - Discharge Plan Condition: Stable Disposition: ADMITTED TO [facility] - Billing Disposition and Condition Condition: STABLE Disposition: Admitted to [facility] - Attestation Statements Document Initiated by Ezequiel: Yes Documenting Itzelibe: Cem Ryan Provider For Whom Ezequiel is Documenting (Include Credential): Ellis Jones MD Scribe Attestation: Cem Helton, scribed for Ellis Jones MD on 08/13/18 at 2306. Scribe Documentation Reviewed: Yes Provider Attestation: The documentation as recorded by the Cem mcdowell accurately reflects the service I personally performed and the decisions made by me, Ellis Jones MD Status of Scribe Document: Viewed
[2018-08-13] MEDS ORDERED: Albuterol 2.5 MG/3 ML NEB.SOL* (0.083%) INH PRN (01:13)
[2018-08-13] MEDS ORDERED: Ondansetron INJ* 2 MG/ML VIAL IV PRN (01:13)
--- NOTE | 2018-08-13 03:42 | HP ---
CC: Dr. You Matthews * HISTORY AND PHYSICAL: DATE OF ADMISSION: 08/13/18 PRIMARY CARE PROVIDER: You Matthews MD. ATTENDING PHYSICIAN: Ange Alegria MD * (dictated by Juana Phelps NP). CHIEF COMPLAINT: Cough. HISTORY OF PRESENT ILLNESS: Ms. Webber is an 87-year-old female with past medical history of Parkinson's, hypertension, hyperlipidemia, hypothyroidism, GERD, and depression, who presents to the emergency room today with complaints of cough. The patient is a resident at [facility] and according to their records has been experiencing a cough for at least 2 days. This morning she was noted to have altered mental status and there was a concern that she was leaning to her right. She was noted to have a persistent cough as well as a low-grade fever. The patient does have a MOLST form that indicates that she is a Do Not Hospitalize, though the patient requested to come to the emergency room and nursing staff spoke with the patient's daughter, her healthcare proxy, who advised that she would like her to come to the emergency room. The patient had completed a 5-day course of azithromycin, which ended on 08/06/18. She was also started on Tessalon during that time. The patient reports that this cough has been going on for at least 2 weeks. She reports that the cough is not productive and she denies any associated shortness of breath. The patient states that she has had cough like this in the past that are typically easily treated with cough syrup. She denies any changes in appetite, chest pain, nausea, vomiting, diarrhea, abdominal pain, dysuria, urinary frequency, focal weakness or neurological deficits. In the emergency room, the patient was noted to be tachycardic and tachypneic. She also was reportedly hypoxic, requiring 2 L of oxygen to maintain saturations in the 90s. She did have lab work, which was essentially unremarkable, except for urinalysis, which was indicative of a urinary tract infection. She had a chest x- ray, which was unremarkable and a chest CT, which was unremarkable for any pulmonary embolism. The hospitalist service was asked to evaluate for admission. PAST MEDICAL HISTORY: 1. Parkinson's disease. 2. Hypertension. 3. Hyperlipidemia. 4. Hypothyroidism. 5. GERD. 6. Depression. PAST SURGICAL HISTORY: 1. Bilateral ankle ORIF. 2. Hysterectomy. 3. Appendectomy. HOME MEDICATIONS: 1. Acetaminophen 650 mg p.o. b.i.d. 2. Aspirin 81 mg p.o. daily. 3. Tessalon 100 mg p.o. b.i.d., p.r.n. cough. 4. Calcium carbonate 500 mg p.o. daily, p.r.n. heartburn. 5. Sinemet 25/100, one tab 5 times daily. 6. Cetirizine 10 mg p.o. daily. 7. Diltiazem 180 mg p.o. daily. 8. Glycerin suppository, 1 suppository [place] daily, p.r.n. constipation. 9. Levothyroxine 50 mcg p.o. daily. 10. Losartan 50 mg p.o. daily. 11. Milk of mag 30 mL p.o. q.72 hours p.r.n. constipation. 12. Singulair 10 mg p.o. daily. 13. Omeprazole 20 mg p.o. daily. 14. MiraLAX 17 g p.o. daily. 15. Seroquel 50 mg p.o. at bedtime. 16. Refresh eye drops, 1 drop to both eyes t.i.d. 17. Sertraline 25 mg p.o. at bedtime. ALLERGIES: AMANTADINE, AMOXICILLIN, EPINEPHRINE, HYDROCODONE, MEPERIDINE, MORPHINE, PROCAINE, and PROPOXYPHENE. FAMILY HISTORY: The patient denies any family history of heart disease, diabetes or cancer. SOCIAL HISTORY: The patient denies any tobacco, alcohol or recreational drug use. She lives at [facility]. The patient's daughter, Stephen Field , will be her surrogate decision maker in the event she is unable to make her own decisions. Her phone number is [phone]. REVIEW OF SYSTEMS: An 11-point review of systems was performed and all the pertinent positive and negative findings are in the HPI. All other systems are negative. PHYSICAL EXAMINATION GENERAL: Ms. Webber is a well-developed, well-nourished, elderly white woman, lying in bed, in no acute distress. She appears her stated age. VITAL SIGNS: Temp 98.9, heart rate 104, respiratory rate 25, oxygen saturation 93% on 2 L, blood pressure 136/77. HEENT: Head is normocephalic, atraumatic. Visual saleh are grossly intact. Hearing is grossly intact. Oral mucous membranes are moist without lesions. NECK: Thyroid not palpable. Trachea midline. No lymphadenopathy. RESPIRATORY: Symmetrical chest expansion. No chest wall deformities. Rhonchi throughout. No wheezing or rubs. CARDIOVASCULAR: Regular rate and rhythm. S1 and S2 present. No murmurs, rubs or gallops. No JVD. ABDOMEN: Soft, nontender to palpation. Bowel sounds are normoactive throughout. EXTREMITIES: Skin is warm and smooth bilaterally. No edema. No clubbing or cyanosis. Pedal pulses 2+ bilaterally. NEURO: Awake, alert, oriented x4, with transient confusion. Moves all extremities. No focal neurological deficits. DIAGNOSTIC STUDIES AND LABORATORY DATA: WBC 11.6, RBC 4.04, hemoglobin 12.3, hematocrit 38, platelets 410. INR 1.05. Sodium 139, potassium 4.2, chloride 104, carbon dioxide 27, BUN 24, creatinine 0.93, glucose 110. Lactic acid 0.8. Troponin 0.00. BNP 38. Chest x-ray to my read shows no active cardiopulmonary disease. Chest and thorax CTA: No evidence of pulmonary embolism in large caliber pulmonary arteries. Small caliber pulmonary arteries could not be assessed. Moderate-sized hiatal hernia. Other chronic findings described in the body of the report. ASSESSMENT AND PLAN: Ms. Webber is an 87-year-old female with past medical history of Parkinson's, hypertension, hyperlipidemia, hypothyroidism, GERD, and depression, who presents to the emergency room today with complaints of a cough and was found to have a urinary tract infection and is meeting sepsis criteria. The patient will be admitted as inpatient for: 1. Urinary tract infection: The patient's urinalysis is positive for nitrites , leukocyte esterase, and bacteria. A urine culture is pending. She denies any urinary symptoms, although because of her altered mental status we will treat her at this point. The patient did receive 1 dose of Levaquin in the emergency room. I will continue her on ceftriaxone. I will note that the patient does have an unknown reaction to AMOXICILLIN, although it appears as though she did receive Zosyn here in the past, and because of the low cross- reactivity I feel the ceftriaxone is appropriate at this point. I will check a Legionella and Strep pneumo urine antigen. 2. Community-acquired pneumonia: The patient's chest x-ray and CT are not particularly concerning for pneumonia, although the patient does have a significant loose cough and lung sounds are very rhonchorous throughout. She does not have a pulmonary history, so clinically, pneumonia is high on the differential. The patient did complete a 5-day course of azithromycin so I will not put her on any atypical coverage. I will continue her on the ceftriaxone for her urinary tract infection as this would likely cover any other respiratory pathogens causing a pneumonia. She was also noted to be slightly hypoxic in the emergency room, further supporting a diagnosis of pneumonia. We will continue her on oxygen as needed, though we will titrate her oxygen to maintain saturation greater than 92%. I will continue the patient on the Tessalon that she was already taking at the assisted, though I will make this scheduled and increase it to t.i.d. as she does report that this is helpful. 3. Sepsis: The patient does meet sepsis criteria with tachycardia and tachypnea. Source is urinary tract infection and pneumonia. I will place her on ceftriaxone as noted above. There is no evidence of severe sepsis or organ dysfunction. 4. Parkinson's: Continue Sinemet. 5. Hypertension: The patient was hypertensive on arrival to the emergency room , though now is normotensive. I will continue diltiazem and losartan. 6. Hypothyroidism: Continue levothyroxine. 7. Gastroesophageal reflux disease: Continue omeprazole or on-formulary alternative. 8. Depression: Continue sertraline. 9. FEN: The patient does not require any fluid resuscitation or electrolyte repletion at this time. I have ordered a regular diet as well as a soft texture based on records from the assisted. 10. Code status: The patient is a DNR/DNI. She came with a MOLST form from the assisted and I have updated this and placed it on the chart. 11. DVT prophylaxis: According to the DVT Risk Assessment, the patient scores a 5 putting her at highest risk. I have placed her on Lovenox. TIME SPENT: Approximately 60 minutes were spent on this admission, greater than half of that time was spent [id number] with the patient obtaining my history, performing my physical exam, and reviewing the plan of care. This case has been reviewed with my attending, Dr. Alegria, who is in agreement with the plan of care. JUANA PHELPS, PARTS ASSEMBLER [id number]/[facility] #: [id number] [facility]WR[facility] PSYCHIATRIC CENTERAntonio
[2018-08-13] MEDS: Enoxaparin(*) 40 MG/0.4 ML SYR SUBCUT SCH ×2 (03:44→04:10)
[2018-08-13] MEDS: Benzonatate CAP* 100 MG PO ONE ×2 (03:45→04:11)
[2018-08-13] MEDS: cefTRIAXone(*) 1 GM in NS 0.9% 50 ML* 50 ML IVPB SCH (03:45)
[2018-08-13] MEDS: Carbidopa/Levodop 25/100 MG TAB(*) PO SCH ×8 (03:47→20:24)
[2018-08-13] MEDS: Levothyroxine TAB* 50 MCG TAB PO SCH (06:07)
[2018-08-13 07:08] LABS: Calcium 9.2 mg/dL (8.6-10.3)
[2018-08-13 07:13] LABS: EGFR African American 71.8 (>60); EGFR Non-African American 59.4 (>60)
[2018-08-13 07:45] LABS: Potassium 4.7 mmol/L (3.5-5.0)
[2018-08-13] MEDS: Diltiazem CD CAP* 180 MG PO SCH (10:07)
[2018-08-13] MEDS: Montelukast Sodium TAB* 10 MG PO SCH (10:07)
[2018-08-13] MEDS: Losartan TAB* 25 MG PO SCH (10:07)
[2018-08-13] MEDS: Cetirizine* 10 MG TAB PO SCH (10:07)
[2018-08-13] MEDS: Benzonatate CAP* 100 MG PO SCH ×3 (10:08→21:10)
[2018-08-13] MEDS: Acetaminophen TAB* 325 MG PO SCH ×2 (10:08→21:09)
[2018-08-13] MEDS: Pantoprazole TAB * 40 MG TAB PO SCH (10:08)
[2018-08-13] MEDS: Aspirin 81 mg CHEW TAB* 81 MG TAB.CHEW PO SCH (10:08)
[2018-08-13] MEDS: Polyethylene Glycol 3350* 17 GM PACKET PO SCH (10:09)
--- NOTE | 2018-08-13 12:11 | PN ---
Hospitalist Progress Note Date of Service: 08/13/18 Pt seen and examined at bedside. Admitted earlier this am for pneumonia and uti. Reports ongoing sob but otherwise doing well. Orders and plan per dictated h and p.If no improvement in symptoms in 24h, will consider switching/expancing antibiotics tomorrow
[2018-08-13 12:39] LABS: ABS Basophils 0.1 10^3/ul (0-0.2); ABS Eosinophils 0.4 10^3/ul (0-0.6); ABS Lymphocytes 1.8 10^3/ul (1.0-4.8); ABS Monocytes 0.7 10^3/ul (0-0.8); ABS Neutrophils 8.6 10^3/ul (1.5-7.7); Eosinophil % 3.3 %; Hematocrit 34 % (35-47); Hemoglobin 11.3 g/dL (12.0-16.0); Lymphocyte % 15.4 %; Mean Corpuscular HGB Conc 33 g/dL (31-36); Mean Corpuscular Hemoglobin 31 pg (27-31); Mean Corpuscular Volume 92 fL (80-97); Mean Platelet Volume 8.2 fL (7.4-10.4); Nucleated Red Blood Cells % 0.1; Platelet Count 373 10^3/uL (150-450); Red Blood Count 3.69 10^6 /uL (3.70-4.87); Red Cell Distribution Width 14 % (10-15); White Blood Count 11.6 10^3/uL (3.5-10.8)
[2018-08-13] MEDS: QUEtiapine TAB* 25 MG PO SCH (20:23)
[2018-08-13] MEDS: Sertraline* 25 MG TAB PO SCH (20:24)
[2018-08-14] MEDS: cefTRIAXone(*) 1 GM in NS 0.9% 50 ML* 50 ML IVPB SCH (01:14)
[2018-08-14] MEDS: Enoxaparin(*) 40 MG/0.4 ML SYR SUBCUT SCH (01:14)
[2018-08-14] MEDS: Levothyroxine TAB* 50 MCG TAB PO SCH (05:30)
[2018-08-14 06:44] LABS: ABS Basophils 0.1 10^3/ul (0-0.2); ABS Eosinophils 0.6 10^3/ul (0-0.6); ABS Lymphocytes 1.9 10^3/ul (1.0-4.8); ABS Monocytes 0.5 10^3/ul (0-0.8); ABS Neutrophils 5.4 10^3/ul (1.5-7.7); Eosinophil % 7.5 %; Hematocrit 33 % (35-47); Hemoglobin 11.3 g/dL (12.0-16.0); Lymphocyte % 22.5 %; Mean Corpuscular HGB Conc 34 g/dL (31-36); Mean Corpuscular Hemoglobin 32 pg (27-31); Mean Corpuscular Volume 93 fL (80-97); Mean Platelet Volume 8.7 fL (7.4-10.4); Nucleated Red Blood Cells % 0.1; Platelet Count 345 10^3/uL (150-450); Red Blood Count 3.59 10^6 /uL (3.70-4.87); Red Cell Distribution Width 14 % (10-15); White Blood Count 8.4 10^3/uL (3.5-10.8)
[2018-08-14 06:45] LABS: BUN/Creatinine Ratio 18.2 (8-20); Calcium 8.8 mg/dL (8.6-10.3); EGFR African American 64.4 (>60); EGFR Non-African American 53.2 (>60); Potassium 3.9 mmol/L (3.5-5.0)
[2018-08-14] MEDS: Acetaminophen TAB* 325 MG PO SCH ×2 (07:37→21:49)
[2018-08-14] MEDS: Aspirin 81 mg CHEW TAB* 81 MG TAB.CHEW PO SCH (07:37)
[2018-08-14] MEDS: Pantoprazole TAB * 40 MG TAB PO SCH (07:37)
[2018-08-14] MEDS: Montelukast Sodium TAB* 10 MG PO SCH (07:37)
[2018-08-14] MEDS: Cetirizine* 10 MG TAB PO SCH (07:37)
[2018-08-14] MEDS: Benzonatate CAP* 100 MG PO SCH ×3 (07:37→21:49)
[2018-08-14] MEDS: Diltiazem CD CAP* 180 MG PO SCH (07:38)
[2018-08-14] MEDS: Losartan TAB* 25 MG PO SCH (07:38)
[2018-08-14] MEDS: Carbidopa/Levodop 25/100 MG TAB(*) PO SCH ×5 (07:40→20:13)
[2018-08-14] MEDS: Polyethylene Glycol 3350* 17 GM PACKET PO SCH (07:45)
[2018-08-14] MEDS: NS 0.9% 1000 ML** 1,000 ML IV SCH ×2 (12:22→19:58)
[2018-08-14] MEDS ORDERED: Diltiazem CD CAP* 180 MG PO SCH (17:02)
--- NOTE | 2018-08-14 17:11 | PN ---
Subjective Date of Service: 08/14/18 Interval History: Reports feeling better.Answering questions appropriately.Says cough is better.However BP on the low side in high 90s today.Cardizem and losartan held.IVF started. WBC improved Objective Active Medications: Acetaminophen (Tylenol Tab*) 650 mg PO BID [facility] Last Admin: 08/14/18 07:37 Dose: 650 mg Albuterol (Ventolin 2.5 Mg/3 Ml Neb.Jerri*) 2.5 mg INH [id number] AWAKE PRN PRN Reason: sob/wheezing Aspirin (Aspirin 81 Mg Chew Tab*) 81 mg PO DAILY [facility] Last Admin: 08/14/18 07:37 Dose: 81 mg Benzonatate (Tessalon Cap*) 100 mg PO TID [facility] Last Admin: 08/14/18 14:12 Dose: 100 mg Carbidopa/Levodopa (Sinemet 25/100 Tab(*)) 1 tab PO 0800,1100,1400,1700 [facility] Last Admin: 08/14/18 14:12 Dose: 1 tab Carbidopa/Levodopa (Sinemet 25/100 Tab(*)) 1 tab PO 2100 [facility] Last Admin: 08/13/18 20:24 Dose: 1 tab Cetirizine HCl (Zyrtec*) 10 mg PO DAILY [facility] Last Admin: 08/14/18 07:37 Dose: 10 mg Diltiazem HCl (Cardizem Cd Cap*) 180 mg PO DAILY [facility] Enoxaparin Sodium (Lovenox(*)) 40 mg SUBCUT Q24H [facility] Last Admin: 08/14/18 01:14 Dose: 40 mg Ceftriaxone Sodium 1 gm/ (Sodium Chloride) 50 mls @ 200 mls/hr IVPB Q24H [facility] Last Admin: 08/14/18 01:14 Dose: 200 mls/hr Sodium Chloride (Ns 0.9% 1000 Ml) 1,000 mls @ 75 mls/hr IV PER RATE [facility] Last Admin: 08/14/18 12:22 Dose: 75 mls/hr Levothyroxine Sodium (Synthroid Tab*) 50 mcg PO 0600 [facility] Last Admin: 08/14/18 05:30 Dose: 50 mcg Montelukast Sodium (Singulair Tab*) 10 mg PO DAILY [facility] Last Admin: 08/14/18 07:37 Dose: 10 mg Ondansetron HCl (Zofran Inj*) 4 mg IV Q4H PRN PRN Reason: NAUSEA/VOMITING Pantoprazole Sodium (Protonix Tab*) 40 mg PO DAILY [facility] Last Admin: 08/14/18 07:37 Dose: 40 mg Polyethylene Glycol/Electrolytes (Miralax*) 17 gm PO DAILY [facility] Last Admin: 08/14/18 07:45 Dose: 17 gm Quetiapine Fumarate (Seroquel Tab*) 50 mg PO BEDTIME [facility] Last Admin: 08/13/18 20:23 Dose: 50 mg Sertraline HCl (Zoloft*) 25 mg PO BEDTIME [facility] Last Admin: 08/13/18 20:24 Dose: 25 mg Vital Signs - 8 hr 08/14/18 11:41 Temperature 97.4 F Pulse Rate 69 Respiratory 18 Rate Blood Pressure 92/54 (mmHg) O2 Sat by Pulse 96 Oximetry Oxygen Devices in Use Now: None, Nasal Cannula Eyes: No Scleral Icterus Neck: NL Appearance and Movements; NL JVP Respiratory: Symmetrical Chest Expansion and Respiratory Effort Cardiovascular: NL Sounds; No Murmurs; No JVD Abdominal: NL Sounds; No Tenderness; No Distention - 1+ Edema Extremities: - Neurological: Alert and Oriented x 3 Result Diagrams: 08/14/18 06:13 08/14/18 06:13 Microbiology and Other Data: Microbiology 08/12/18 22:00 Urine Culture - Preliminary Urine Proteus Mirabilis 08/12/18 19:34 Aerobic Blood Culture - Preliminary Blood Venous No Growth Day 1 Anaerobic Blood Culture - Preliminary No Growth Day 1 08/12/18 19:46 Aerobic Blood Culture - Preliminary Blood Venous No Growth Day 1 Anaerobic Blood Culture - Preliminary No Growth Day 1 08/12/18 22:00 Legionella Urinary Antigen - Final Urine Negative Legionella Antigen Streptococcus pneumoniae Ag Screen - Final Negative S. pneumo Antigen 08/13/18 04:20 Nasal Screen MRSA (PCR) - Final Nasal Mrsa Not Detected Assess/Plan/Problems-Billing Assessment: - Patient Problems (1) Sepsis Current Visit: Yes Status: Acute Comment: sec to uti bp low today.started on ivf leukocytosis improving lactic acid wnl before in light of hypotension, bp meds held. Started IVF.Will recheck labs and lactic acid Urine cx proteus Blood neg continue ceftriaxone (2) UTI (urinary tract infection) Current Visit: Yes Status: Acute Comment: proteus hypotension continue ceftriaxone afebrile leukocytosis improving (3) Pneumonia Current Visit: Yes Status: Acute Code(s): J18.9 - PNEUMONIA, UNSPECIFIED ORGANISM SNOMED Code(s): 845207568 Comment: recent tx with azithromycin cxr not suggestive of pcn but pt had cough that hadnt subsided for weeks improving now will continue ceftriaxone on ra if no improvement can consider switching to zosyn to cover hcap.has amoxicillin allergy but seems like has recd zosyn before.as proteus in urine ( usualy sensitive to ceftriaxone) and cxr clear cough improving, will monitor on ceftriaxone for now if ongoing hypotension, will consider expanding antibiotics (4) Hypotension Current Visit: Yes Status: Acute Comment: see above repeat lactic acid and labs ivf ceftriaxone prior troponin neg no cp or suggestion of cardiac event cta neg for PE
[2018-08-14] MEDS ORDERED: NS 0.9% 250 ML* 250 ML IV ONE (19:04)
[2018-08-14 19:36] LABS: ABS Basophils 0.1 10^3/ul (0-0.2); ABS Eosinophils 0.7 10^3/ul (0-0.6); ABS Lymphocytes 1.5 10^3/ul (1.0-4.8); ABS Monocytes 0.4 10^3/ul (0-0.8); ABS Neutrophils 4.6 10^3/ul (1.5-7.7); Eosinophil % 9.4 %; Hematocrit 34 % (35-47); Hemoglobin 11.4 g/dL (12.0-16.0); Lymphocyte % 20.6 %; Mean Corpuscular HGB Conc 33 g/dL (31-36); Mean Corpuscular Hemoglobin 31 pg (27-31); Mean Corpuscular Volume 94 fL (80-97); Mean Platelet Volume 8.4 fL (7.4-10.4); Platelet Count 340 10^3/uL (150-450); Red Blood Count 3.63 10^6 /uL (3.70-4.87); Red Cell Distribution Width 14 % (10-15); White Blood Count 7.3 10^3/uL (3.5-10.8)
[2018-08-14 19:52] LABS: BUN/Creatinine Ratio 19.8 (8-20); Calcium 8.5 mg/dL (8.6-10.3); EGFR African American 62.9 (>60); Potassium 3.9 mmol/L (3.5-5.0)
[2018-08-14] MEDS: Sertraline* 25 MG TAB PO SCH (21:49)
[2018-08-14] MEDS: QUEtiapine TAB* 25 MG PO SCH (21:49)
--- NOTE | 2018-08-14 21:54 | PN ---
Hospitalist Progress Note Date of Service: 08/14/18 Called to bedside of this 87 yo F, here on hospital day 2, with PMH Parkinsons, mild cognitive impairment, HTN, HLD, GERD who presented with sepsis from presumed urinary source and ?ble PNA. Pt has had persistent hypotension, without fever, starting this afternoon, she rec'd at 250cc bolus, without improvement, also on MIVF @ 75cc/hr seems more lethargic. On exam, pt is quite tired, able to follow commands and answer questions but closes eyes every 10 seconds or so Oriented to self and place, not to events or time PEERLA, EOMI, CN2-12 intact Dry MM Neck supple, no JVD RRR no MRG S1S2 Lungs dimished in blt bases, with coarse rhonchi, no petey crackles Ext: mild blt UE edema from blood draw, no LE edema Belly Soft NT ND NABS Labs: Unremarkable from 16:00, lactate flat I/O: Incontinent of urine EKG: Sinus bradycardia, low voltage CT Chest from 08/12: NO pericardial effusion or pleural effusions seen Repeat CXR from 08/14: New? hazy atelectasis vs effusion, poor film, rotated, infiltrate at R hilar Micro: Proteus in urine, covered 87 yo F, here on hospital day 2, with PMH Parkinsons, mild cognitive impairment , HTN, HLD, GERD who presented with sepsis from presumed urinary source and ? ble PNA, persistent hypOtension, possibly aspiration event in the last 24 hours. #Hypotension: Possibly still all sepsis, no e/o adrenal issues, no signs of cardiac shock other than low voltage-unchanged from 01/2018, no new ischemia or arrythemia, no pericardial effusion for tamponade---will attempt gentle fluid boluses 250cc at a time, for MAP <60, will avoid MIVF for now given possible developing pleural effusion -Q2 vitals for 6 hours, then q4, bolus if MAP <60 -Broaden abx to cover anaerobes and broader spectrum to 4th generation cephalosporin for possible aspiration -Will place on tele given GOC below and to be able to guide tx. #Goals of Care: 25 minute discussion with Jadon (tele [phone]) Stephen understands some persitent hypotension despite tx, possible aspiration, she understands her prognosis is gaurded and could go either way. IF BP were to drop to MAP <60, Stephen reports patient would NOT WANT central line and pressors, (in fact MOLST from admission says do not hospitlize) and instead would want to just use abx and fluids and if no response to these interventions would want to be made comfort care. -Stephen will come early in AM to visit, understands could decompensate overnight and we will update her if she does. -Will update molst to be DNR DNI no BiPAP no feeding tube no pressors and trial IV abx and IV fluids
[2018-08-14] MEDS: Cefepime 2 GM in Dextrose(*) 2 GM/50 ML BAG IV SCH (22:38)
[2018-08-14] MEDS: metroNIDAZOLE IV 500 MG/100ML* 500 MG/100 ML BAG IVPB SCH (23:19)
[2018-08-15] MEDS: Enoxaparin(*) 40 MG/0.4 ML SYR SUBCUT SCH (05:33)
[2018-08-15] MEDS: Levothyroxine TAB* 50 MCG TAB PO SCH (05:34)
[2018-08-15] MEDS: Acetaminophen TAB* 325 MG PO SCH ×3 (05:43→21:40)
[2018-08-15 06:06] LABS: ABS Basophils 0.1 10^3/ul (0-0.2); ABS Eosinophils 0.7 10^3/ul (0-0.6); ABS Lymphocytes 1.5 10^3/ul (1.0-4.8); ABS Monocytes 0.5 10^3/ul (0-0.8); ABS Neutrophils 3.9 10^3/ul (1.5-7.7); Eosinophil % 10.8 %; Hematocrit 32 % (35-47); Lymphocyte % 22.4 %; Mean Corpuscular HGB Conc 34 g/dL (31-36); Mean Corpuscular Hemoglobin 32 pg (27-31); Mean Corpuscular Volume 93 fL (80-97); Mean Platelet Volume 8.5 fL (7.4-10.4); Nucleated Red Blood Cells % 0.1; Platelet Count 342 10^3/uL (150-450); Red Blood Count 3.49 10^6 /uL (3.70-4.87); Red Cell Distribution Width 14 % (10-15); White Blood Count 6.7 10^3/uL (3.5-10.8)
[2018-08-15 06:26] LABS: Potassium 3.7 mmol/L (3.5-5.0)
[2018-08-15 06:32] LABS: BUN/Creatinine Ratio 20.7 (8-20); EGFR African American 74.7 (>60); EGFR Non-African American 61.7 (>60)
[2018-08-15] MEDS: Carbidopa/Levodop 25/100 MG TAB(*) PO SCH ×5 (08:30→21:40)
[2018-08-15] MEDS: Cetirizine* 10 MG TAB PO SCH (08:30)
[2018-08-15] MEDS: Polyethylene Glycol 3350* 17 GM PACKET PO SCH (08:30)
[2018-08-15] MEDS: Pantoprazole TAB * 40 MG TAB PO SCH (08:31)
[2018-08-15] MEDS: Benzonatate CAP* 100 MG PO SCH ×3 (08:31→21:40)
[2018-08-15] MEDS: Montelukast Sodium TAB* 10 MG PO SCH (08:31)
[2018-08-15] MEDS: Aspirin 81 mg CHEW TAB* 81 MG TAB.CHEW PO SCH (08:31)
[2018-08-15 09:17] LABS: C Reactive Protein 20.09 mg/L (<8.01)
[2018-08-15] MEDS: Cefepime 2 GM in Dextrose(*) 2 GM/50 ML BAG IV SCH ×2 (10:16→21:40)
--- NOTE | 2018-08-15 10:50 | PN ---
Subjective Date of Service: 08/15/18 Interval History: Pt is confused, c/o pain after bee stings that as per daughter sitting by the beside was an admission "ages ago". Pt is unable to pinpoint the location of pain. Falling asleep during eval and mumbling to herself . Occasionally addresses to her daughter with a friend's name and asking her how her parents are. Objective Active Medications: Acetaminophen (Tylenol Tab*) 650 mg PO BID [facility] Last Admin: 08/15/18 08:53 Dose: Not Given Albuterol (Ventolin 2.5 Mg/3 Ml Neb.Jerri*) 2.5 mg INH [id number] AWAKE PRN PRN Reason: sob/wheezing Aspirin (Aspirin 81 Mg Chew Tab*) 81 mg PO DAILY [facility] Last Admin: 08/15/18 08:31 Dose: 81 mg Benzonatate (Tessalon Cap*) 100 mg PO TID [facility] Last Admin: 08/15/18 08:31 Dose: 100 mg Carbidopa/Levodopa (Sinemet 25/100 Tab(*)) 1 tab PO 0800,1100,1400,1700 [facility] Last Admin: 08/15/18 08:30 Dose: 1 tab Carbidopa/Levodopa (Sinemet 25/100 Tab(*)) 1 tab PO 2100 [facility] Last Admin: 08/14/18 20:13 Dose: Not Given Cetirizine HCl (Zyrtec*) 10 mg PO DAILY [facility] Last Admin: 08/15/18 08:30 Dose: 10 mg Enoxaparin Sodium (Lovenox(*)) 40 mg SUBCUT Q24H [facility] Last Admin: 08/15/18 05:33 Dose: Not Given Cefepime HCl (Maxipime 2 Gm In Dextrose Duplex (*)) 2 gm in 50 mls @ 100 mls/ hr IV Q12H [facility] Last Admin: 08/15/18 10:16 Dose: 100 mls/hr Metronidazole/Sodium Chloride (Flagyl 500 Mg Ivpb*) 500 mg in 100 mls @ 100 mls /hr IVPB Q12H [facility] Last Admin: 08/14/18 23:19 Dose: 100 mls/hr Levothyroxine Sodium (Synthroid Tab*) 50 mcg PO 0600 [facility] Last Admin: 08/15/18 05:34 Dose: 50 mcg Montelukast Sodium (Singulair Tab*) 10 mg PO DAILY [facility] Last Admin: 08/15/18 08:31 Dose: 10 mg Ondansetron HCl (Zofran Inj*) 4 mg IV Q4H PRN PRN Reason: NAUSEA/VOMITING Pantoprazole Sodium (Protonix Tab*) 40 mg PO DAILY [facility] Last Admin: 08/15/18 08:31 Dose: 40 mg Polyethylene Glycol/Electrolytes (Miralax*) 17 gm PO DAILY [facility] Last Admin: 08/15/18 08:30 Dose: 17 gm Quetiapine Fumarate (Seroquel Tab*) 50 mg PO BEDTIME [facility] Last Admin: 08/14/18 21:49 Dose: 50 mg Sertraline HCl (Zoloft*) 25 mg PO BEDTIME [facility] Last Admin: 08/14/18 21:49 Dose: 25 mg Vital Signs - 8 hr 08/15/18 08/15/18 03:01 07:30 Temperature 98.3 F 96.9 F Pulse Rate 81 77 Respiratory 16 16 Rate Blood Pressure 97/57 98/72 (mmHg) O2 Sat by Pulse 100 100 Oximetry Oxygen Devices in Use Now: Nasal Cannula Appearance: 87 yo F in nAD, oriented to self, lethargic Eyes: No Scleral Icterus, PERRLA Ears/Nose/Mouth/Throat: NL Teeth, Lips, Gums, Mucous Membranes Moist Neck: NL Appearance and Movements; NL JVP Respiratory: Symmetrical Chest Expansion and Respiratory Effort, - - crackles at RLL Cardiovascular: NL Sounds; No Murmurs; No JVD, RRR Abdominal: NL Sounds; No Tenderness; No Distention, No Hepatosplenomegaly Lymphatic: No Cervical Adenopathy Extremities: No Edema, No Clubbing, Cyanosis Skin: No Rash or Ulcers, No Nodules or Sclerosis Neurological: NL Muscle Strength and Tone Result Diagrams: 08/15/18 05:42 08/15/18 05:42 Microbiology and Other Data: Microbiology 08/12/18 22:00 Urine Culture - Preliminary Urine Proteus Mirabilis 08/12/18 19:34 Aerobic Blood Culture - Preliminary Blood Venous No Growth Day 1 Anaerobic Blood Culture - Preliminary No Growth Day 1 08/12/18 19:46 Aerobic Blood Culture - Preliminary Blood Venous No Growth Day 1 Anaerobic Blood Culture - Preliminary No Growth Day 1 08/12/18 22:00 Legionella Urinary Antigen - Final Urine Negative Legionella Antigen Streptococcus pneumoniae Ag Screen - Final Negative S. pneumo Antigen 08/13/18 04:20 Nasal Screen MRSA (PCR) - Final Nasal Mrsa Not Detected Assess/Plan/Problems-Billing Assessment: 87 yo F with h/o Parkinson's residing at [facility] presents with confusion , UTI - Patient Problems (1) Pneumonia Comment: recent tx with azithromycin cxr suggestive PNA at RLL possiblke aspiration, cont Cefepime/Flagyl (switched from Ceftriaxone 08/15/18) Swallow eval pending (2) Hypotension Comment: family not interested in pressors. SBP stable now. Would cont to bolus with IVF prn (3) Sepsis Comment: due to Proteus UTI Blood neg continue Cefepime (4) Parkinson disease Comment: -Continue PO Sinemet at pt home doses (5) Encephalopathy acute Comment: due to sepsis continues to be lethargic and confused Daughter requests palliaitive care, considering do not rehospitalize order H/o delirium when hospitalized in 01/2018 (6) DVT prophylaxis Comment: HSQ Status and Disposition: inpatient
[2018-08-15] MEDS: metroNIDAZOLE IV 500 MG/100ML* 500 MG/100 ML BAG IVPB SCH ×2 (11:06→22:17)
--- NOTE | 2018-08-15 13:55 | CONSULT ---
Palliative / Hospice Consult Ordering Provider: July Thao - PCPBridget Referal Reason: Goals of care - Subjective Code Status: DNR Advance Directives Location: Filed at Another Location MOLST Part A Completed: Yes - on chart reviewed with daughter MOLST Part E Completed:: Yes - on chart reviewed with daughter - History or Present Illness History or Present Illness: 87yo female with Parkinson's disease resident of [facility] presents to ER with altered mental status and cough. She has had a cough for 2 weeks and just finished a course of zithromax. PMH is significant for HTN, hyperlipidemia , hypothyroid, GERD and depression. Pt is a non smoker, not etoh no drugs. Her HCP is her daughter Stephen Field [phone]. Studies show CXR #1-neg CXR #2- R basilar infiltrate, ekg-nsr, CTA no PE, hiatal hernia, H/H 11/32, BUN/Cr 18/.87 egfr 61.7, tprot 7.9 and alb 4. All history is from medical records and family pt is unable to contribute. Pt was admitted with sepsis from UTI(Proteus) and pneumonia. Lab Values: Abnormal Lab Results 08/14/18 08/14/18 08/14/18 19:24 19:24 19:24 WBC 7.3 RBC 3.63 L Hgb 11.4 L Hct 34 L MCV 94 MCH 31 MCHC 33 RDW 14 Plt Count 340 MPV 8.4 Neut % (Auto) 63.1 Lymph % (Auto) 20.6 York % (Auto) 6.0 Eos % (Auto) 9.4 Baso % (Auto) 0.9 Absolute Neuts (auto) 4.6 Absolute Lymphs (auto) 1.5 Absolute Monos (auto) 0.4 Absolute Eos (auto) 0.7 H Absolute Basos (auto) 0.1 Absolute Nucleated RBC 0.0 Nucleated RBC % 0.0 Sodium 140 Potassium 3.9 Chloride 110 Carbon Dioxide 23 Anion Gap 7 BUN 20 Creatinine 1.01 H Est GFR ( Amer) 62.9 Est GFR (Non-Af Amer) 52.0 BUN/Creatinine Ratio 19.8 Glucose 147 H Lactic Acid 1.4 Calcium 8.5 L C-Reactive Protein 08/15/18 08/15/18 05:42 05:42 WBC 6.7 RBC 3.49 L Hgb 11.0 L Hct 32 L MCV 93 MCH 32 H MCHC 34 RDW 14 Plt Count 342 MPV 8.5 Neut % (Auto) 58.5 Lymph % (Auto) 22.4 York % (Auto) 7.1 Eos % (Auto) 10.8 Baso % (Auto) 1.2 Absolute Neuts (auto) 3.9 Absolute Lymphs (auto) 1.5 Absolute Monos (auto) 0.5 Absolute Eos (auto) 0.7 H Absolute Basos (auto) 0.1 Absolute Nucleated RBC 0.0 Nucleated RBC % 0.1 Sodium 141 Potassium 3.7 Chloride 110 Carbon Dioxide 25 Anion Gap 6 BUN 18 Creatinine 0.87 Est GFR ( Amer) 74.7 Est GFR (Non-Af Amer) 61.7 BUN/Creatinine Ratio 20.7 H Glucose 93 Lactic Acid Calcium 9.0 C-Reactive Protein 20.09 H Laboratory Last Values WBC 6.7 10^3/uL (3.5-10.8) 08/15/18 05:42 RBC 3.49 10^6 /uL (3.70-4.87) L 08/15/18 05:42 Hgb 11.0 g/dL (12.0-16.0) L 08/15/18 05:42 Hct 32 % (35-47) L 08/15/18 05:42 MCV 93 fL (80-97) 08/15/18 05:42 MCH 32 pg (27-31) H 08/15/18 05:42 MCHC 34 g/dL (31-36) 08/15/18 05:42 RDW 14 % (10-15) 08/15/18 05:42 Plt Count 342 10^3/uL (150-450) 08/15/18 05:42 MPV 8.5 fL (7.4-10.4) 08/15/18 05:42 Neut % (Auto) 58.5 % 08/15/18 05:42 Lymph % (Auto) 22.4 % 08/15/18 05:42 York % (Auto) 7.1 % 08/15/18 05:42 Eos % (Auto) 10.8 % 08/15/18 05:42 Baso % (Auto) 1.2 % 08/15/18 05:42 Absolute Neuts (auto) 3.9 10^3/ul (1.5-7.7) 08/15/18 05:42 Absolute Lymphs (auto) 1.5 10^3/ul (1.0-4.8) 08/15/18 05:42 Absolute Monos (auto) 0.5 10^3/ul (0-0.8) 08/15/18 05:42 Absolute Eos (auto) 0.7 10^3/ul (0-0.6) H 08/15/18 05:42 Absolute Basos (auto) 0.1 10^3/ul (0-0.2) 08/15/18 05:42 Absolute Nucleated RBC 0.0 10^3/ul 08/15/18 05:42 Nucleated RBC % 0.1 08/15/18 05:42 INR (Anticoag Therapy) 1.05 (0.82-1.09) 08/12/18 19:35 Sodium 141 mmol/L (135-145) 08/15/18 05:42 Potassium 3.7 mmol/L (3.5-5.0) 08/15/18 05:42 Chloride 110 mmol/L (101-111) 08/15/18 05:42 Carbon Dioxide 25 mmol/L (22-32) 08/15/18 05:42 Anion Gap 6 mmol/L (2-11) 08/15/18 05:42 BUN 18 mg/dL (6-24) 08/15/18 05:42 Creatinine 0.87 mg/dL (0.51-0.95) 08/15/18 05:42 Est GFR ( Amer) 74.7 (>60) 08/15/18 05:42 Est GFR (Non-Af Amer) 61.7 (>60) 08/15/18 05:42 BUN/Creatinine Ratio 20.7 (8-20) H 08/15/18 05:42 Glucose 93 mg/dL (70-100) 08/15/18 05:42 Lactic Acid 1.4 mmol/L (0.5-2.0) 08/14/18 19:24 Calcium 9.0 mg/dL (8.6-10.3) 08/15/18 05:42 Total Bilirubin 0.40 mg/dL (0.2-1.0) 08/12/18 19:35 AST 20 U/L (13-39) 08/12/18 19:35 ALT < 3 U/L (7-52) L 08/12/18 19:35 Alkaline Phosphatase 62 U/L (34-104) 08/12/18 19:35 Troponin I 0.00 ng/mL (<0.04) 08/12/18 19:35 C-Reactive Protein 20.09 mg/L (<8.01) H 08/15/18 05:42 B-Natriuretic Peptide 38 pg/mL (<=100) 08/12/18 19:33 Total Protein 7.9 g/dL (6.4-8.9) 08/12/18 19:35 Albumin 4.0 g/dL (3.2-5.2) 08/12/18 19:35 Globulin 3.9 g/dL (2-4) 08/12/18 19:35 Albumin/Globulin Ratio 1.0 (1-3) 08/12/18 19:35 Urine Color Yellow 08/12/18 22:00 Urine Appearance Turbid 08/12/18 22:00 Urine pH 7.0 (5-9) 08/12/18 22:00 Ur Specific Amory 1.017 (1.010-1.030) 08/12/18 22:00 Urine Protein 2+(100 mg/dl) (Negative) A 08/12/18 22:00 Urine Ketones Trace (Negative) A 08/12/18 22:00 Urine Blood 1+ (Negative) A 08/12/18 22:00 Urine Nitrate Positive (Negative) A 08/12/18 22:00 Urine Bilirubin Negative (Negative) 08/12/18 22:00 Urine Urobilinogen Negative (Negative) 08/12/18 22:00 Ur Leukocyte Esterase 3+ (Negative) A 08/12/18 22:00 Urine WBC (Auto) 3+(>20/hpf) (Absent) A 08/12/18 22:00 Urine RBC (Auto) 3+(>10/hpf) (Absent) A 08/12/18 22:00 Urine Bacteria 2+ (Absent) A 08/12/18 22:00 Urine Glucose Negative (Negative) 08/12/18 22:00 Urine Ascorbic Acid * (Negative) A 08/12/18 22:00 - Objective Active Medications: Acetaminophen (Tylenol Tab*) 650 mg PO BID [facility] Last Admin: 08/15/18 08:53 Dose: Not Given Albuterol (Ventolin 2.5 Mg/3 Ml Neb.Jerri*) 2.5 mg INH [id number] AWAKE PRN PRN Reason: sob/wheezing Aspirin (Aspirin 81 Mg Chew Tab*) 81 mg PO DAILY [facility] Last Admin: 08/15/18 08:31 Dose: 81 mg Benzonatate (Tessalon Cap*) 100 mg PO TID [facility] Last Admin: 08/15/18 08:31 Dose: 100 mg Carbidopa/Levodopa (Sinemet 25/100 Tab(*)) 1 tab PO 0800,1100,1400,1700 [facility] Last Admin: 08/15/18 11:25 Dose: 1 tab Carbidopa/Levodopa (Sinemet 25/100 Tab(*)) 1 tab PO 2100 [facility] Last Admin: 08/14/18 20:13 Dose: Not Given Cetirizine HCl (Zyrtec*) 10 mg PO DAILY [facility] Last Admin: 08/15/18 08:30 Dose: 10 mg Enoxaparin Sodium (Lovenox(*)) 40 mg SUBCUT Q24H [facility] Last Admin: 08/15/18 05:33 Dose: Not Given Cefepime HCl (Maxipime 2 Gm In Dextrose Duplex (*)) 2 gm in 50 mls @ 100 mls/ hr IV Q12H [facility] Last Admin: 08/15/18 10:16 Dose: 100 mls/hr Metronidazole/Sodium Chloride (Flagyl 500 Mg Ivpb*) 500 mg in 100 mls @ 100 mls /hr IVPB Q12H [facility] Last Admin: 08/15/18 11:06 Dose: 100 mls/hr Levothyroxine Sodium (Synthroid Tab*) 50 mcg PO 0600 [facility] Last Admin: 08/15/18 05:34 Dose: 50 mcg Montelukast Sodium (Singulair Tab*) 10 mg PO DAILY [facility] Last Admin: 08/15/18 08:31 Dose: 10 mg Ondansetron HCl (Zofran Inj*) 4 mg IV Q4H PRN PRN Reason: NAUSEA/VOMITING Pantoprazole Sodium (Protonix Tab*) 40 mg PO DAILY [facility] Last Admin: 08/15/18 08:31 Dose: 40 mg Polyethylene Glycol/Electrolytes (Miralax*) 17 gm PO DAILY [facility] Last Admin: 08/15/18 08:30 Dose: 17 gm Quetiapine Fumarate (Seroquel Tab*) 50 mg PO BEDTIME [facility] Last Admin: 08/14/18 21:49 Dose: 50 mg Sertraline HCl (Zoloft*) 25 mg PO BEDTIME [facility] Last Admin: 08/14/18 21:49 Dose: 25 mg Vital Signs: Vital Signs: Temp Pulse Resp BP Pulse Ox 96.9 F 77 16 98/72 100 08/15/18 07:30 08/15/18 07:30 08/15/18 08:00 08/15/18 07:30 08/15/18 07:30 Patient Weight: Weight 62.596 kg Intake and Output: Intake & Output 08/13/18 08/14/18 08/15/18 08/16/18 06:59 06:59 06:59 06:59 Intake Total 1409 489 1173 Balance 3865 060 3767 Weight 62.596 kg Intake: IV Fluids 1209 15 1462 NS (0.9%) 15 1462 ceftriaxone 59 IVPB 58 171 antibiotics 171 ceftriaxone 58 Oral 0 240 760 Other: Estimated Void Large Medium Medium Medium Date of Last Bowel unknown Movement # Bowel Movements 0 0 0 1 Estimated Stool Amount Medium Small # Voids 0 3 1 ADLs: Meal Record Start: 08/13/18 02: 39 Freq: DAILY@0900,1400,1800 Status: Active Protocol: Created 08/13/18 02:39 System (Rec: 08/13/18 02:39 System MED-M26) Document 08/13/18 09:00 [id number] (Rec: 08/13/18 10:18 [id number] MED-C11) Document 08/13/18 14:00 [id number] (Rec: 08/13/18 14:35 [id number] MED-C09) Document 08/13/18 18:00 [id number] (Rec: 08/13/18 20:40 [id number] MED-C16) Document 08/14/18 09:00 [id number] (Rec: 08/14/18 10:28 [id number] MED-C09) Document 08/14/18 14:00 [id number] (Rec: 08/14/18 14:59 [id number] MED-C11) Document 08/14/18 18:00 [id number] (Rec: 08/14/18 19:16 [id number] MED-C11) Intake and Output Start: 08/12/18 18: 17 Freq: Status: Active Protocol: Created 08/12/18 18:17 System (Rec: 08/12/18 18:17 System [id number]) Intake and Output Start: 08/13/18 02: 39 Freq: DAILY@0600,1400,2200 Status: Active Protocol: Created 08/13/18 02:39 System (Rec: 08/13/18 02:39 System MED-M26) Document 08/13/18 06:00 [id number] (Rec: 08/13/18 06:26 [id number] MED-C09) Document 08/13/18 14:00 [id number] (Rec: 08/13/18 14:35 [id number] MED-C09) Document 08/13/18 22:00 [id number] (Rec: 08/13/18 22:09 [id number] MED-C16) Document 08/14/18 05:51 [id number] (Rec: 08/14/18 05:51 [id number] MED-C02) Document 08/14/18 14:00 [id number] (Rec: 08/14/18 14:59 [id number] MED-C11) Document 08/14/18 22:00 [id number] (Rec: 08/15/18 00:15 [id number] MED-C04) Document 08/15/18 05:35 [id number] (Rec: 08/15/18 05:36 [id number] MED-C04) Eyes: No Scleral Icterus, PERRLA Ears/Nose/Mouth/Throat: NL Teeth, Lips, Gums, Mucous Membranes Moist Neck: NL Appearance and Movements; NL JVP Cardiovascular: NL Sounds; No Murmurs; No JVD, RRR Abdominal: NL Sounds; No Tenderness; No Distention, No Hepatosplenomegaly Extremities: No Edema, No Clubbing, Cyanosis Neurological: NL Muscle Strength and Tone - Assessment Assessment: 87 yo female with sepsis suspected urinary and pulmonary source guarded prognosis - Plan Consult Plan (MU): Hospice Plan: Long discussion with daughter(Stephen) who is pt's HCP. Daughter is aware that pt has poor prognosis but if she does recuperate she is interested in having a hospice referral at [facility]. We discussed information/benefits of hospice and that pt can sign off at anytime. Daughter's goal is to keep her mother comfortable without heroic interventions. She would like infections which cause discomfort to be treated but otherwise doesn't want BiPAP, intubation, feeding tube or CPR. She would like to keep pt from going back and forth to the hospital because it is disorienting for the pt. Pt is eligible for hospice with a diagnosis of Parkinson disease and recurrent serious infection. KPS 30%, PPS 40% - Time On Unit Date of Evaluation: 08/15/18 Hospice Consult Time in: 13:30 Hospice Consult Time Out: 15:00 Hospice Consult Time Total: 90 > 50% of Time Spend In Counseling or Coordinating Care: Yes
[2018-08-15] MEDS: QUEtiapine TAB* 25 MG PO SCH (21:40)
[2018-08-15] MEDS: Sertraline* 25 MG TAB PO SCH (21:40)
[2018-08-16] MEDS: Enoxaparin(*) 40 MG/0.4 ML SYR SUBCUT SCH (02:33)
[2018-08-16] MEDS: Levothyroxine TAB* 50 MCG TAB PO SCH (05:24)
[2018-08-16] MEDS: Acetaminophen TAB* 325 MG PO SCH ×2 (08:39→20:07)
[2018-08-16] MEDS: Benzonatate CAP* 100 MG PO SCH ×3 (08:39→20:07)
[2018-08-16] MEDS: Polyethylene Glycol 3350* 17 GM PACKET PO SCH (08:39)
[2018-08-16] MEDS: Pantoprazole TAB * 40 MG TAB PO SCH (08:39)
[2018-08-16] MEDS: Montelukast Sodium TAB* 10 MG PO SCH (08:39)
[2018-08-16] MEDS: Cetirizine* 10 MG TAB PO SCH (08:39)
[2018-08-16] MEDS: Aspirin 81 mg CHEW TAB* 81 MG TAB.CHEW PO SCH (08:39)
[2018-08-16] MEDS: Carbidopa/Levodop 25/100 MG TAB(*) PO SCH ×5 (08:45→20:07)
[2018-08-16] MEDS: Cefepime 2 GM in Dextrose(*) 2 GM/50 ML BAG IV SCH ×2 (10:02→22:11)
[2018-08-16] MEDS: metroNIDAZOLE IV 500 MG/100ML* 500 MG/100 ML BAG IVPB SCH ×2 (10:48→22:51)
--- NOTE | 2018-08-16 11:14 | PN ---
Subjective Date of Service: 08/16/18 Interval History: Pt is seen with one of her daughters and her grandson. Has no new complaints, still coughs frequently . Agrees and tolerates modified nectar thick diet Objective Active Medications: Acetaminophen (Tylenol Tab*) 650 mg PO BID [facility] Last Admin: 08/16/18 08:39 Dose: 650 mg Albuterol (Ventolin 2.5 Mg/3 Ml Neb.Jerri*) 2.5 mg INH [id number] AWAKE PRN PRN Reason: sob/wheezing Aspirin (Aspirin 81 Mg Chew Tab*) 81 mg PO DAILY [facility] Last Admin: 08/16/18 08:39 Dose: 81 mg Benzonatate (Tessalon Cap*) 100 mg PO TID [facility] Last Admin: 08/16/18 08:39 Dose: 100 mg Carbidopa/Levodopa (Sinemet 25/100 Tab(*)) 1 tab PO 0800,1100,1400,1700 [facility] Last Admin: 08/16/18 08:45 Dose: 1 tab Carbidopa/Levodopa (Sinemet 25/100 Tab(*)) 1 tab PO 2100 [facility] Last Admin: 08/15/18 21:40 Dose: 1 tab Cetirizine HCl (Zyrtec*) 10 mg PO DAILY [facility] Last Admin: 08/16/18 08:39 Dose: 10 mg Enoxaparin Sodium (Lovenox(*)) 40 mg SUBCUT Q24H [facility] Last Admin: 08/16/18 02:33 Dose: 40 mg Cefepime HCl (Maxipime 2 Gm In Dextrose Duplex (*)) 2 gm in 50 mls @ 100 mls/ hr IV Q12H [facility] Last Admin: 08/16/18 10:02 Dose: 100 mls/hr Metronidazole/Sodium Chloride (Flagyl 500 Mg Ivpb*) 500 mg in 100 mls @ 100 mls /hr IVPB Q12H [facility] Last Admin: 08/16/18 10:48 Dose: 100 mls/hr Levothyroxine Sodium (Synthroid Tab*) 50 mcg PO 0600 [facility] Last Admin: 08/16/18 05:24 Dose: 50 mcg Montelukast Sodium (Singulair Tab*) 10 mg PO DAILY [facility] Last Admin: 08/16/18 08:39 Dose: 10 mg Ondansetron HCl (Zofran Inj*) 4 mg IV Q4H PRN PRN Reason: NAUSEA/VOMITING Pantoprazole Sodium (Protonix Tab*) 40 mg PO DAILY [facility] Last Admin: 08/16/18 08:39 Dose: 40 mg Polyethylene Glycol/Electrolytes (Miralax*) 17 gm PO DAILY [facility] Last Admin: 08/16/18 08:39 Dose: 17 gm Quetiapine Fumarate (Seroquel Tab*) 50 mg PO BEDTIME [facility] Last Admin: 08/15/18 21:40 Dose: 50 mg Sertraline HCl (Zoloft*) 25 mg PO BEDTIME [facility] Last Admin: 08/15/18 21:40 Dose: 25 mg Vital Signs - 8 hr 08/16/18 08:00 Temperature 97.1 F Pulse Rate 76 Respiratory 18 Rate Blood Pressure 158/95 (mmHg) O2 Sat by Pulse 99 Oximetry Oxygen Devices in Use Now: None Appearance: 87 yo F in nAD, AAOx2 Eyes: No Scleral Icterus, PERRLA Ears/Nose/Mouth/Throat: NL Teeth, Lips, Gums, Mucous Membranes Moist Neck: NL Appearance and Movements; NL JVP, Trachea Midline Respiratory: Symmetrical Chest Expansion and Respiratory Effort, - - R lower lobe rhonchi Cardiovascular: NL Sounds; No Murmurs; No JVD, RRR Abdominal: NL Sounds; No Tenderness; No Distention, No Hepatosplenomegaly Lymphatic: No Cervical Adenopathy Extremities: No Edema, No Clubbing, Cyanosis Skin: No Rash or Ulcers, No Nodules or Sclerosis Neurological: NL Muscle Strength and Tone Result Diagrams: 08/15/18 05:42 08/15/18 05:42 Microbiology and Other Data: Microbiology 08/12/18 22:00 Urine Culture - Preliminary Urine Proteus Mirabilis 08/12/18 19:34 Aerobic Blood Culture - Preliminary Blood Venous No Growth Day 1 Anaerobic Blood Culture - Preliminary No Growth Day 1 08/12/18 19:46 Aerobic Blood Culture - Preliminary Blood Venous No Growth Day 1 Anaerobic Blood Culture - Preliminary No Growth Day 1 08/12/18 22:00 Legionella Urinary Antigen - Final Urine Negative Legionella Antigen Streptococcus pneumoniae Ag Screen - Final Negative S. pneumo Antigen 08/13/18 04:20 Nasal Screen MRSA (PCR) - Final Nasal Mrsa Not Detected Assess/Plan/Problems-Billing Assessment: 87 yo F with h/o Parkinson's residing at [facility] presents with confusion , UTI - Patient Problems (1) Pneumonia Comment: recent tx with azithromycin cxr suggestive PNA at [facility] aspiration possiblke aspiration, cont Cefepime/Flagyl (switched from Ceftriaxone 08/15/18) Swallow eval showed dysphagia: OK for nectar thick liquids and soft solids (2) Hypotension Comment: family not interested in pressors. resolved (3) Sepsis Comment: due to Proteus UTI Blood neg continue Cefepime (4) Parkinson disease Comment: -Continue PO Sinemet at pt home doses (5) Encephalopathy acute Comment: due to sepsis improved today, cooperative and conversartional, still very forgetful H/o delirium when hospitalized in 01/2018 (6) DVT prophylaxis Comment: HSQ Status and Disposition: inpatient appreciate palliative care consult : pt is likely hospice candidate, recommend hospice referral at arrival to [place]
[2018-08-16] MEDS: Sertraline* 25 MG TAB PO SCH (20:07)
[2018-08-16] MEDS: QUEtiapine TAB* 25 MG PO SCH (20:07)
[2018-08-17] MEDS: Enoxaparin(*) 40 MG/0.4 ML SYR SUBCUT SCH (01:46)
[2018-08-17] MEDS: Levothyroxine TAB* 50 MCG TAB PO SCH (05:56)
[2018-08-17] MEDS ORDERED: Losartan TAB* 25 MG PO SCH (10:00)
[2018-08-17] MEDS: Montelukast Sodium TAB* 10 MG PO SCH (10:26)
[2018-08-17] MEDS: Aspirin 81 mg CHEW TAB* 81 MG TAB.CHEW PO SCH (10:26)
[2018-08-17] MEDS: Pantoprazole TAB * 40 MG TAB PO SCH (10:26)
[2018-08-17] MEDS: Acetaminophen TAB* 325 MG PO SCH (10:26)
[2018-08-17] MEDS: Cetirizine* 10 MG TAB PO SCH (10:26)
[2018-08-17] MEDS: Carbidopa/Levodop 25/100 MG TAB(*) PO SCH ×2 (10:26→13:13)
[2018-08-17] MEDS: Benzonatate CAP* 100 MG PO SCH (10:26)
[2018-08-17] MEDS: Polyethylene Glycol 3350* 17 GM PACKET PO SCH (10:27)
[2018-08-17] MEDS: metroNIDAZOLE IV 500 MG/100ML* 500 MG/100 ML BAG IVPB SCH (10:28)
[2018-08-17 10:35] LABS: Calcium 9.1 mg/dL (8.6-10.3); EGFR African American 88.7 (>60); EGFR Non-African American 73.3 (>60); Potassium 3.6 mmol/L (3.5-5.0)
[2018-08-17] MEDS: Cefepime 2 GM in Dextrose(*) 2 GM/50 ML BAG IV SCH (11:51)
--- NOTE | 2018-08-17 12:18 | DS ---
CC: Dr. You Matthews; [facility]; Dr. Gelacio Weinstein; Dr. Pat Fried * DISCHARGE SUMMARY: DATE OF ADMISSION: 08/13/18 DATE OF DISCHARGE: 08/17/18 PRIMARY CARE PROVIDER: Dr. You Matthews. DISPOSITION AT DISCHARGE: The patient is going to be discharged back to [facility]. CONDITION AT DISCHARGE: Stable. DISCHARGE DIAGNOSES: 1. Sepsis with aspiration pneumonia. 2. Proteus urinary tract infection. 3. Dysphagia. 4. Acute encephalopathy due to sepsis in patient with underlying dementia. SECONDARY DIAGNOSES: 1. History of Parkinson's. 2. Hypertension. 3. Hyperlipidemia. 4. Hypothyroidism. 5. Gastroesophageal reflux disease. 6. Depression. MEDICATIONS AT DISCHARGE: Include: 1. Cefdinir 300 mg b.i.d. for a total of 3 days and stop. 2. Tinidazole 500 mg 2 times a day for a total of 3 days and stop. The remaining medications are unchanged and include: 1. Tylenol on a p.r.n. basis. 2. Aspirin 81 mg daily. 3. Calcium carbonate 500 mg daily. 4. Carbidopa/levodopa 25/100 mg 1 tablet 5 times a day as previously taken at 8 o'clock, 11 a.m., 2 p.m., 5 p.m., and 9 p.m. 5. Cardizem 180 mg daily. 6. Zyrtec 20 mg daily. 8. Glycerin suppository on a p.r.n. basis. 9. Levothyroxine 50 mcg daily. 10. Cozaar 50 mg daily. 11. Milk of Magnesia 30 mL every 72 hours p.r.n. 12. Singulair 10 mg daily. 13. Omeprazole 20 mg daily. 14. MiraLAX 17 g daily p.r.n. 15. Seroquel 50 mg at bedtime. 16. Refresh Repair eye drops, 1 drop 3 times a day to both eyes. 17. Tessalon 100 mg b.i.d. p.r.n. LABORATORY DATA AND STUDIES PERFORMED DURING THE HOSPITAL STAY: Included on , white blood cell count of 6.7, hemoglobin of 11.0, hematocrit of 32, and platelets of 342. Sodium 141, potassium 3.7, chloride 110, carbon dioxide 25, BUN 18, creatinine 0.87. Portable chest x-ray documented on 08/14/18, impression: "Right basilar infiltrate." Microbiology tests are negative. Blood cultures and urine tests negative for Strep pneumo antigen and Legionella antigen. Urine cultures positive for 100, 000 colonies of Proteus mirabilis resistant to nitrofurantoin and tetracycline. CT angiogram of the chest obtained on 08/12/18, impression: "No evidence of pulmonary embolism in large caliber pulmonary arteries. Small caliber pulmonary arteries could not be assessed. Moderate-sized hiatal hernia. Other chronic findings as above." HOSPITALIZATION COURSE: Charissa Webber is an 87-year-old female who is a resident of [facility] with history of Parkinson's, who presented to the hospital complaining of cough. The patient recently was diagnosed with UTI. She became encephalopathic and confused and very lethargic. She has had mild underlying dementia and has a history of delirium and prior hospital stay. At that point, an extensive discussion was carried between both the patient's daughters and the patient's daughters requested for the patient to have IV antibiotics, but otherwise they inclined towards more comfort treatment. Dr. Pat Fried saw the patient in consultation and recommended hospice referral at admission back to [facility]. The patient likely will qualify for hospice and family is interested. Throughout her remaining hospital stay, the patient continued IV antibiotics and gradually she became more alert, but she continues to be confused and appears to be hallucinating from time to time. Please note that the patient had an hypotension on 08/14/18, at which point, the patient received multiple intravenous fluid boluses and pressors were not chosen by the family. The patient's hypotension resolved spontaneously. By the time of discharge, the patient is pleasant, conversational, remembered that she was in the hospital but occasionally would drift off and start talking about walking some distance outside of the hospital and talking about the facts that family did not even recall. The patient is going to be discharged back to [facility]. Her dysphagia evaluation was positive for dysphagia and she is going to take nectar thick liquids and mechanical ground diet to be continued at [facility]. Once again, it is recommended for the patient to be referred to hospice on arrival to [facility]. CONDITION AT DISCHARGE: Stable. DISPOSITION AT DISCHARGE: [facility]. PHYSICAL EXAM: At the time of discharge, blood pressure of 151/110, heart rate of 78 and regular, respiratory rate of 17, oxygen saturation 97% on room air, temperature of 97.5. General: The patient is a pleasant 87-year-old female who is in no acute distress. The patient is alert and oriented x2, but occasionally becomes confused to location also. HEENT: Head atraumatic, normocephalic. Eyes: Pupils are equal and reactive to light and accommodation. Oropharynx is clear. Mucosa moist. Neck: Supple. No JVD. No bruits bilaterally. Cardiovascular: Regular rate and rhythm with no murmur. Respiratory: Crackles at right lower and mid lungs. Abdomen: Soft, nontender. Bowel sounds are present in all 4 quadrants. Extremities: There is no edema. Pulses +2 bilaterally. No clubbing or cyanosis. Neuro Evaluation: Speech is clear. Cranial nerves II through XII are grossly intact. Motor strength is 5/5 bilaterally. Please note that this is a short summary of the patient's hospital stay. Please refer to further medical records for details. TIME SPENT: Approximately 45 minutes was spent in preparation of the patient's discharge. [id number]/[facility] #: [id number] [facility]PITALAntonio
[2018-08-17 12:42] VITALS: BP 156/94
== END 2018-08-17 12:35 | DRG 871 ==
LOC: ED 18:05 → MED 08-13 01:13
PROVIDERS: ADMIT Nurse Practitioner Family; ATTEND Internal Medicine
DX: A41.9 Sepsis, unspecified organism (principal); J69.0 Pneumonitis due to inhalation of food and vomit; G93.40 Encephalopathy, unspecified; J90 Pleural effusion, not elsewhere classified; N39.0 Urinary tract infection, site not specified; J98.11 Atelectasis; I95.9 Hypotension, unspecified; B96.4 Proteus (mirabilis) (morganii) as the cause of diseases classified elsewhere; R13.10 Dysphagia, unspecified; G20 Parkinson's disease; F02.80 Dementia in other diseases classified elsewhere, unspecified severity, without behavioral disturbance, psychotic disturbance, mood disturbance, and anxiety; I10 Essential (primary) hypertension; E78.5 Hyperlipidemia, unspecified; E03.9 Hypothyroidism, unspecified; K21.9 Gastro-esophageal reflux disease without esophagitis; F32.9 Major depressive disorder, single episode, unspecified; K44.9 Diaphragmatic hernia without obstruction or gangrene; R09.02 Hypoxemia; Z66 Do not resuscitate; Z79.1 Long term (current) use of non-steroidal anti-inflammatories (NSAID); Z79.82 Long term (current) use of aspirin; Z79.899 Other long term (current) drug therapy; Z88.1 Allergy status to other antibiotic agents; Z88.5 Allergy status to narcotic agent; Z88.8 Allergy status to other drugs, medicaments and biological substances
CPT/HCPCS: 36415; 71045; 71046; 71275; 80048; 80053; 81003; 81015; 83605; 83880; 84484; 85025; 85610; 86140; 87040; 87077; 87086; 87186; 87641; 87899; 93005; 99285; A9270-GY; J0692; J0696; J1650; J3490; Q9967